=== PATIENT | male | born 1980 | race Caucasian/White ===

== ENCOUNTER 2016-08-17 19:32 | Emergency (ER) | payer MEDICAID ==
[2016-08-17 20:37] LABS: BASOPHILS 0.5 % (0-2); EOSINOPHILS 2.4 % (0-7); HEMATOCRIT 42.6 % (42.0-54.0); HEMOGLOBIN 14.6 g/dL (13.5-17.5); IMMATURE GRANULOCYTES 0.5 % (0-5); LYMPHOCYTES 31.1 % (15-50); MCH 35.8 pg (26.0-34.0); MCHC 34.3 g/dL (31.0-37.0); MCV 104.4 fL (80.0-100.0); MEAN PLATELET VOLUME 8.8 fL (7.4-10.4); MONOCYTES 10.9 % (2-11); NEUTROPHILS 54.6 % (40-80); RBC 4.08 10x6/uL (4.20-6.10); RDW 13.6 % (11.5-14.5)
[2016-08-17 20:41] LABS: PLATELET COUNT 273 10x3/uL (130-400)
[2016-08-17 20:45] LABS: UDS - AMPHET NEGATIVE QUAL (NEGATIVE); UDS - BARB NEGATIVE QUAL (NEGATIVE); UDS - BENZO NEGATIVE QUAL (NEGATIVE); UDS - COCAINE NEGATIVE QUAL (NEGATIVE); UDS - METH NEGATIVE QUAL (NEGATIVE); UDS - OPIATE NEGATIVE QUAL (NEGATIVE); UDS - PCP NEGATIVE QUAL (NEGATIVE); UDS - THC NEGATIVE QUAL (NEGATIVE)
[2016-08-17 20:54] LABS: APPEARANCE CLEAR (CLEAR); BILIRUBIN NEGATIVE (NEGATIVE); COLOR YELLOW (YELLOW); GLUCOSE NEGATIVE (NEGATIVE); KETONE NEGATIVE (NEGATIVE); LEUKOCYTE ESTERASE NEGATIVE (NEGATIVE); NITRITE NEGATIVE (NEGATIVE); PROTEIN NEGATIVE (NEGATIVE); SPECIFIC GRAVITY 1.015 (1.005-1.020); UROBILINOGEN NORMAL (NORMAL)
[2016-08-17 20:56] LABS: ALBUMIN 3.6 g/dL (3.4-5.0); ALKALINE PHOSPHATASE 114 U/L (46-116); ALT (SGPT) 85 U/L (10-68); BILIRUBIN - TOTAL 0.14 mg/dL (0.2-1.3); CALC OSMOLALITY 289 mosm/kg (275-300); CALCIUM 8.9 mg/dL (8.5-10.1); CARBON DIOXIDE 29.2 mmol/L (21.0-32.0); CHLORIDE - SERUM 107 mmol/L (98-107); GLUCOSE 99 mg/dL (74-106); POTASSIUM - SERUM 4.3 mmol/L (3.5-5.1); PROTEIN - SERUM 8.1 g/dL (6.4-8.2); SODIUM 146 mmol/L (136-145); UREA NITROGEN 9 mg/dL (7-18); eGFR NON AFRICAN AMERICAN > 90 mL/min (90-120)
== END 2016-08-18 11:22 | disposition short-term general hospital (02) ==
LOC: D.ER 19:32
PROVIDERS: Family Medicine
DX: F32.9 Major depressive disorder, single episode, unspecified (principal); R45.851 Suicidal ideations; F10.10 Alcohol abuse, uncomplicated; G40.909 Epilepsy, unspecified, not intractable, without status epilepticus; F14.10 Cocaine abuse, uncomplicated

== ENCOUNTER 2016-09-21 09:40 | Emergency (ER) | payer MEDICAID ==
[2016-09-21 10:53] LABS: BASOPHILS 0.4 % (0-2); EOSINOPHILS 2.1 % (0-7); HEMATOCRIT 40.1 % (42.0-54.0); HEMOGLOBIN 13.4 g/dL (13.5-17.5); IMMATURE GRANULOCYTES 1.7 % (0-5); MCH 34.9 pg (26.0-34.0); MCHC 33.4 g/dL (31.0-37.0); MCV 104.4 fL (80.0-100.0); MEAN PLATELET VOLUME 9.6 fL (7.4-10.4); MONOCYTES 10.3 % (2-11); NEUTROPHILS 72.5 % (40-80); RBC 3.84 10x6/uL (4.20-6.10); RDW 13.3 % (11.5-14.5); WBC 5.2 10x3/uL (4.8-10.8)
[2016-09-21 10:54] LABS: PLATELET COUNT 152 10x3/uL (130-400)
[2016-09-21 10:59] LABS: APPEARANCE CLEAR (CLEAR); BACTERIA FEW /hpf (NONE SEEN); BILIRUBIN NEGATIVE (NEGATIVE); COLOR YELLOW (YELLOW); EPITHELIAL CELLS OCC /hpf (0-5); GLUCOSE NEGATIVE (NEGATIVE); KETONE SMALL mg/dL (NEGATIVE); LEUKOCYTE ESTERASE TRACE (NEGATIVE); NITRITE NEGATIVE (NEGATIVE); PROTEIN 1+ mg/dL (NEGATIVE); RED CELLS - URINE 0-5 /hpf (0-5); UROBILINOGEN NORMAL (NORMAL); YEAST OCC /hpf (NONE SEEN)
[2016-09-21 11:00] LABS: MUCUS <1+ /lpf (NONE SEEN)
[2016-09-21 11:03] LABS: UDS - AMPHET NEGATIVE QUAL (NEGATIVE); UDS - BARB NEGATIVE QUAL (NEGATIVE); UDS - BENZO NEGATIVE QUAL (NEGATIVE); UDS - COCAINE NEGATIVE QUAL (NEGATIVE); UDS - METH NEGATIVE QUAL (NEGATIVE); UDS - OPIATE NEGATIVE QUAL (NEGATIVE); UDS - PCP NEGATIVE QUAL (NEGATIVE); UDS - THC NEGATIVE QUAL (NEGATIVE)
[2016-09-21 11:07] LABS: ALBUMIN 3.2 g/dL (3.4-5.0); ALKALINE PHOSPHATASE 104 U/L (46-116); ALT (SGPT) 114 U/L (10-68); CALC OSMOLALITY 280 mosm/kg (275-300); CALCIUM 8.4 mg/dL (8.5-10.1); CHLORIDE - SERUM 104 mmol/L (98-107); CREATININE - SERUM 0.9 mg/dL (0.6-1.3); GLUCOSE 111 mg/dL (74-106); POTASSIUM - SERUM 4.1 mmol/L (3.5-5.1); SODIUM 141 mmol/L (136-145); UREA NITROGEN 10 mg/dL (7-18); eGFR NON AFRICAN AMERICAN > 90 mL/min (90-120)
[2016-09-21 11:08] LABS: CARBAMAZEPINE (TEGRETOL) 5.7 ug/mL (4.0-12.0); MAGNESIUM - SERUM 1.5 mg/dL (1.8-2.4)
== END 2016-09-21 14:03 | disposition home or self-care (01) ==
LOC: D.ER 09:40
PROVIDERS: Family Medicine; Nurse Practitioner Family
DX: G40.909 Epilepsy, unspecified, not intractable, without status epilepticus (principal); N39.0 Urinary tract infection, site not specified

== ENCOUNTER 2016-10-25 22:29 | Emergency (ER) | payer MEDICAID ==
[2016-10-25 23:45] LABS: BASOPHILS 0.1 % (0-2); EOSINOPHILS 1.8 % (0-7); HEMATOCRIT 40.9 % (42.0-54.0); HEMOGLOBIN 14.2 g/dL (13.5-17.5); IMMATURE GRANULOCYTES 0.4 % (0-5); MCHC 34.7 g/dL (31.0-37.0); MCV 100.7 fL (80.0-100.0); MONOCYTES 13.4 % (2-11); NEUTROPHILS 57.3 % (40-80); PLATELET COUNT 176 10x3/uL (130-400); RBC 4.06 10x6/uL (4.20-6.10); RDW 12.8 % (11.5-14.5); WBC 7.6 10x3/uL (4.8-10.8)
[2016-10-26 00:05] LABS: ALBUMIN 3.5 g/dL (3.4-5.0); ALKALINE PHOSPHATASE 89 U/L (46-116); ALT (SGPT) 134 U/L (10-68); BILIRUBIN - TOTAL 0.36 mg/dL (0.2-1.3); CALC OSMOLALITY 283 mosm/kg (275-300); CALCIUM 8.7 mg/dL (8.5-10.1); CARBON DIOXIDE 24.2 mmol/L (21.0-32.0); CHLORIDE - SERUM 103 mmol/L (98-107); CREATININE - SERUM 0.8 mg/dL (0.6-1.3); GLUCOSE 102 mg/dL (74-106); MAGNESIUM - SERUM 1.9 mg/dL (1.8-2.4); POTASSIUM - SERUM 3.4 mmol/L (3.5-5.1); PROTEIN - SERUM 7.7 g/dL (6.4-8.2); SODIUM 144 mmol/L (136-145); UREA NITROGEN 4 mg/dL (7-18); eGFR NON AFRICAN AMERICAN > 90 mL/min (90-120)
== END 2016-10-26 01:19 | disposition home or self-care (01) ==
LOC: D.ER 22:29
PROVIDERS: Emergency Medicine
DX: G40.909 Epilepsy, unspecified, not intractable, without status epilepticus (principal); F10.10 Alcohol abuse, uncomplicated; F17.200 Nicotine dependence, unspecified, uncomplicated

== ENCOUNTER 2016-10-27 18:59 | Emergency (ER) | payer MEDICAID ==
[2016-10-27 20:19] LABS: BASOPHILS 0.2 % (0-2); EOSINOPHILS 0.3 % (0-7); HEMATOCRIT 37.6 % (42.0-54.0); HEMOGLOBIN 12.9 g/dL (13.5-17.5); IMMATURE GRANULOCYTES 0.3 % (0-5); LYMPHOCYTES 16.1 % (15-50); MCHC 34.3 g/dL (31.0-37.0); MCV 101.9 fL (80.0-100.0); MEAN PLATELET VOLUME 9.5 fL (7.4-10.4); MONOCYTES 14.5 % (2-11); NEUTROPHILS 68.6 % (40-80); PLATELET COUNT 173 10x3/uL (130-400); RBC 3.69 10x6/uL (4.20-6.10); WBC 6.3 10x3/uL (4.8-10.8)
[2016-10-27 20:34] LABS: APPEARANCE CLEAR (CLEAR); COLOR AMBER (YELLOW); SPECIFIC GRAVITY 1.015 (1.005-1.020)
[2016-10-27 20:35] LABS: BILIRUBIN NEGATIVE (NEGATIVE); GLUCOSE NEGATIVE (NEGATIVE); KETONE NEGATIVE (NEGATIVE); LEUKOCYTE ESTERASE NEGATIVE (NEGATIVE); NITRITE NEGATIVE (NEGATIVE); PROTEIN NEGATIVE (NEGATIVE); UROBILINOGEN NORMAL (NORMAL)
[2016-10-27 22:02] LABS: UDS - AMPHET NEGATIVE QUAL (NEGATIVE); UDS - BARB NEGATIVE QUAL (NEGATIVE); UDS - BENZO NEGATIVE QUAL (NEGATIVE); UDS - COCAINE NEGATIVE QUAL (NEGATIVE); UDS - METH NEGATIVE QUAL (NEGATIVE); UDS - OPIATE NEGATIVE QUAL (NEGATIVE); UDS - PCP NEGATIVE QUAL (NEGATIVE); UDS - THC NEGATIVE QUAL (NEGATIVE)
== END 2016-10-27 22:03 | disposition home or self-care (01) ==
LOC: D.ER 18:59
PROVIDERS: Emergency Medicine; Nurse Practitioner Family
DX: R11.2 Nausea with vomiting, unspecified (principal); R42 Dizziness and giddiness

== ENCOUNTER 2016-11-10 07:56 | Emergency (ER) | payer MEDICAID ==
[2016-11-10 09:47] LABS: BASOPHILS 0.4 % (0-2); EOSINOPHILS 0.6 % (0-7); HEMATOCRIT 43.5 % (42.0-54.0); LYMPHOCYTES 9.4 % (15-50); MCH 34.9 pg (26.0-34.0); MCHC 34.5 g/dL (31.0-37.0); MCV 101.2 fL (80.0-100.0); MEAN PLATELET VOLUME 9.2 fL (7.4-10.4); MONOCYTES 9.2 % (2-11); NEUTROPHILS 79.4 % (40-80); RDW 13.1 % (11.5-14.5); WBC 8.3 10x3/uL (4.8-10.8)
[2016-11-10 09:52] LABS: PLATELET COUNT 214 10x3/uL (130-400)
[2016-11-10 10:04] LABS: APPEARANCE CLEAR (CLEAR); BILIRUBIN NEGATIVE (NEGATIVE); COLOR YELLOW (YELLOW); GLUCOSE NEGATIVE (NEGATIVE); KETONE SMALL mg/dL (NEGATIVE); LEUKOCYTE ESTERASE NEGATIVE (NEGATIVE); NITRITE NEGATIVE (NEGATIVE); PROTEIN NEGATIVE (NEGATIVE); UROBILINOGEN NORMAL (NORMAL)
[2016-11-10 10:08] LABS: UDS - AMPHET POSITIVE QUAL (NEGATIVE); UDS - BARB NEGATIVE QUAL (NEGATIVE); UDS - BENZO NEGATIVE QUAL (NEGATIVE); UDS - COCAINE NEGATIVE QUAL (NEGATIVE); UDS - METH NEGATIVE QUAL (NEGATIVE); UDS - OPIATE NEGATIVE QUAL (NEGATIVE); UDS - PCP NEGATIVE QUAL (NEGATIVE); UDS - THC NEGATIVE QUAL (NEGATIVE)
[2016-11-10 10:12] LABS: BACTERIA FEW /hpf (NONE SEEN); EPITHELIAL CELLS 0-5 /hpf (0-5); HYALINE CAST 0-5 /lpf (NONE SEEN); MUCUS >1+ /lpf (NONE SEEN); RED CELLS - URINE 0-5 /hpf (0-5); WHITE CELLS - URINE 0-5 /hpf (0-5)
[2016-11-10 10:39] LABS: ALBUMIN 3.3 g/dL (3.4-5.0); ALKALINE PHOSPHATASE 85 U/L (46-116); ALT (SGPT) 81 U/L (10-68); BILIRUBIN - TOTAL 0.17 mg/dL (0.2-1.3); CALC OSMOLALITY 280 mosm/kg (275-300); CALCIUM 8.1 mg/dL (8.5-10.1); CARBAMAZEPINE (TEGRETOL) 1.5 ug/mL (4.0-12.0); CARBON DIOXIDE 26.3 mmol/L (21.0-32.0); CHLORIDE - SERUM 103 mmol/L (98-107); CREATININE - SERUM 0.8 mg/dL (0.6-1.3); GLUCOSE 88 mg/dL (74-106); MAGNESIUM - SERUM 1.8 mg/dL (1.8-2.4); PROTEIN - SERUM 7.2 g/dL (6.4-8.2); SODIUM 142 mmol/L (136-145); UREA NITROGEN 9 mg/dL (7-18); eGFR NON AFRICAN AMERICAN > 90 mL/min (90-120)
== END 2016-11-10 12:28 | disposition home or self-care (01) ==
LOC: D.ER 07:56
PROVIDERS: Emergency Medicine
DX: R56.9 Unspecified convulsions (principal); F19.10 Other psychoactive substance abuse, uncomplicated; F31.89 Other bipolar disorder; F17.200 Nicotine dependence, unspecified, uncomplicated

== ENCOUNTER 2016-12-11 09:42 | Emergency (ER) | payer MEDICAID ==
[2016-12-11 10:23] LABS: APPEARANCE CLEAR (CLEAR); BILIRUBIN NEGATIVE (NEGATIVE); COLOR YELLOW (YELLOW); GLUCOSE NEGATIVE (NEGATIVE); KETONE NEGATIVE (NEGATIVE); LEUKOCYTE ESTERASE NEGATIVE (NEGATIVE); NITRITE NEGATIVE (NEGATIVE); PROTEIN NEGATIVE (NEGATIVE); SPECIFIC GRAVITY 1.015 (1.005-1.020); UROBILINOGEN NORMAL (NORMAL)
[2016-12-11 10:25] LABS: BASOPHILS 0.3 % (0-2); EOSINOPHILS 3.8 % (0-7); HEMATOCRIT 41.8 % (42.0-54.0); HEMOGLOBIN 14.5 g/dL (13.5-17.5); IMMATURE GRANULOCYTES 1.3 % (0-5); LYMPHOCYTES 25.1 % (15-50); MCH 35.5 pg (26.0-34.0); MCHC 34.7 g/dL (31.0-37.0); MCV 102.5 fL (80.0-100.0); MONOCYTES 12.9 % (2-11); NEUTROPHILS 56.6 % (40-80); PLATELET COUNT 195 10x3/uL (130-400); RBC 4.08 10x6/uL (4.20-6.10); RDW 13.4 % (11.5-14.5); WBC 6.1 10x3/uL (4.8-10.8)
[2016-12-11 10:30] LABS: UDS - AMPHET POSITIVE QUAL (NEGATIVE); UDS - BARB NEGATIVE QUAL (NEGATIVE); UDS - BENZO NEGATIVE QUAL (NEGATIVE); UDS - COCAINE NEGATIVE QUAL (NEGATIVE); UDS - METH NEGATIVE QUAL (NEGATIVE); UDS - OPIATE NEGATIVE QUAL (NEGATIVE); UDS - PCP NEGATIVE QUAL (NEGATIVE); UDS - THC NEGATIVE QUAL (NEGATIVE)
[2016-12-11 10:43] LABS: ALBUMIN 3.4 g/dL (3.4-5.0); ALKALINE PHOSPHATASE 101 U/L (46-116); ALT (SGPT) 53 U/L (10-68); CALC OSMOLALITY 273 mosm/kg (275-300); CALCIUM 8.2 mg/dL (8.5-10.1); CARBON DIOXIDE 13.7 mmol/L (21.0-32.0); CHLORIDE - SERUM 100 mmol/L (98-107); GLUCOSE 109 mg/dL (74-106); MAGNESIUM - SERUM 1.9 mg/dL (1.8-2.4); POTASSIUM - SERUM 3.9 mmol/L (3.5-5.1); PROTEIN - SERUM 7.7 g/dL (6.4-8.2); SODIUM 138 mmol/L (136-145); UREA NITROGEN 4 mg/dL (7-18); eGFR NON AFRICAN AMERICAN > 90 mL/min (90-120)
== END 2016-12-11 15:36 | disposition home or self-care (01) ==
LOC: D.ER 09:42
PROVIDERS: Emergency Medicine; Nurse Practitioner Family
DX: G40.909 Epilepsy, unspecified, not intractable, without status epilepticus (principal); F10.10 Alcohol abuse, uncomplicated; Z91.14 Patient's other noncompliance with medication regimen; F17.200 Nicotine dependence, unspecified, uncomplicated

== ENCOUNTER 2016-12-21 07:41 | Emergency (ER) | payer MEDICAID | END 2016-12-21 08:18 | disposition home or self-care (01) | LOC: D.ER 07:41 | DX: R56.9 Unspecified convulsions (principal); Z91.14 Patient's other noncompliance with medication regimen; F10.10 Alcohol abuse, uncomplicated; F17.200 Nicotine dependence, unspecified, uncomplicated ==

== ENCOUNTER 2017-04-20 22:58 | Emergency (ER) | payer MEDICAID ==
[2017-04-20 23:51] LABS: HEMATOCRIT 38.2 % (42.0-54.0); HEMOGLOBIN 13.4 g/dL (13.5-17.5); LYMPHOCYTES 40.2 % (15-50); MCHC 35.1 g/dL (31.0-37.0); MCV 99.7 fL (80.0-100.0); MEAN PLATELET VOLUME 8.5 fL (7.4-10.4); NEUTROPHILS 47.5 % (40-80); RBC 3.83 10x6/uL (4.20-6.10); RDW 13.2 % (11.5-14.5); WBC 7.7 10x3/uL (4.8-10.8)
[2017-04-20 23:52] LABS: PLATELET COUNT 282 10x3/uL (130-400)
[2017-04-21 00:07] LABS: ALBUMIN 3.3 g/dL (3.4-5.0); ALKALINE PHOSPHATASE 95 U/L (46-116); ALT (SGPT) 40 U/L (10-68); CALC OSMOLALITY 279 mosm/kg (275-300); CALCIUM 8.7 mg/dL (8.5-10.1); CARBON DIOXIDE 27.6 mmol/L (21.0-32.0); CHLORIDE - SERUM 104 mmol/L (98-107); CREATININE - SERUM 0.9 mg/dL (0.6-1.3); GLUCOSE 101 mg/dL (74-106); MAGNESIUM - SERUM 1.8 mg/dL (1.8-2.4); POTASSIUM - SERUM 3.9 mmol/L (3.5-5.1); PROTEIN - SERUM 7.2 g/dL (6.4-8.2); SODIUM 141 mmol/L (136-145); UREA NITROGEN 9 mg/dL (7-18); eGFR NON AFRICAN AMERICAN > 90 mL/min (90-120)
[2017-04-21 02:33] LABS: COLOR YELLOW (YELLOW); UDS - AMPHET NEGATIVE QUAL (NEGATIVE); UDS - BARB NEGATIVE QUAL (NEGATIVE); UDS - BENZO POSITIVE QUAL (NEGATIVE); UDS - COCAINE NEGATIVE QUAL (NEGATIVE); UDS - OPIATE NEGATIVE QUAL (NEGATIVE); UDS - PCP NEGATIVE QUAL (NEGATIVE); UDS - THC NEGATIVE QUAL (NEGATIVE)
[2017-04-21 02:34] LABS: APPEARANCE CLEAR (CLEAR); BILIRUBIN NEGATIVE (NEGATIVE); GLUCOSE NEGATIVE (NEGATIVE); KETONE NEGATIVE (NEGATIVE); NITRITE NEGATIVE (NEGATIVE); PROTEIN NEGATIVE (NEGATIVE); SPECIFIC GRAVITY 1.015 (1.005-1.020); UROBILINOGEN NORMAL (NORMAL)
[2017-04-21 02:35] LABS: BACTERIA NONE SEEN /hpf (NONE SEEN); EPITHELIAL CELLS 0-5 /hpf (0-5); RED CELLS - URINE NONE SEEN /hpf (0-5); WHITE CELLS - URINE 0-5 /hpf (0-5)
== END 2017-04-21 07:03 | disposition home or self-care (01) ==
LOC: D.ER 22:58
PROVIDERS: Family Medicine
DX: F10.10 Alcohol abuse, uncomplicated (principal); G40.909 Epilepsy, unspecified, not intractable, without status epilepticus; F17.200 Nicotine dependence, unspecified, uncomplicated

== ENCOUNTER 2017-04-26 20:27 | Emergency (ER) | payer MEDICAID ==
[2017-04-26 21:39] LABS: BASOPHILS 0.2 % (0-2); EOSINOPHILS 2.9 % (0-7); HEMATOCRIT 40.7 % (42.0-54.0); HEMOGLOBIN 13.8 g/dL (13.5-17.5); IMMATURE GRANULOCYTES 0.2 % (0-5); LYMPHOCYTES 23.7 % (15-50); MCH 34.6 pg (26.0-34.0); MCHC 33.9 g/dL (31.0-37.0); MEAN PLATELET VOLUME 9.4 fL (7.4-10.4); PLATELET COUNT 274 10x3/uL (130-400); RBC 3.99 10x6/uL (4.20-6.10); RDW 12.7 % (11.5-14.5); WBC 8.6 10x3/uL (4.8-10.8)
[2017-04-26 21:45] LABS: INR 0.92 (0.85-1.17)
[2017-04-26 21:50] LABS: APPEARANCE CLEAR (CLEAR); BILIRUBIN NEGATIVE (NEGATIVE); COLOR DK YELLOW (YELLOW); GLUCOSE NEGATIVE (NEGATIVE); KETONE NEGATIVE (NEGATIVE); NITRITE NEGATIVE (NEGATIVE); PROTEIN TRACE mg/dL (NEGATIVE); UROBILINOGEN NORMAL (NORMAL)
[2017-04-26 21:55] LABS: WHITE CELLS - URINE 0-5 /hpf (0-5)
[2017-04-26 21:56] LABS: ALBUMIN 3.6 g/dL (3.4-5.0); ALKALINE PHOSPHATASE 89 U/L (46-116); ALT (SGPT) 42 U/L (10-68); BILIRUBIN - TOTAL 0.23 mg/dL (0.2-1.3); CALC OSMOLALITY 273 mosm/kg (275-300); CALCIUM 8.8 mg/dL (8.5-10.1); CARBON DIOXIDE 29.5 mmol/L (21.0-32.0); CHLORIDE - SERUM 99 mmol/L (98-107); CREATININE - SERUM 0.7 mg/dL (0.6-1.3); GLUCOSE 100 mg/dL (74-106); POTASSIUM - SERUM 4.1 mmol/L (3.5-5.1); PROTEIN - SERUM 7.6 g/dL (6.4-8.2); SODIUM 138 mmol/L (136-145); UREA NITROGEN 8 mg/dL (7-18); eGFR NON AFRICAN AMERICAN > 90 mL/min (90-120)
[2017-04-26 21:56] LABS: UDS - AMPHET NEGATIVE QUAL (NEGATIVE); UDS - BARB NEGATIVE QUAL (NEGATIVE); UDS - BENZO POSITIVE QUAL (NEGATIVE); UDS - COCAINE NEGATIVE QUAL (NEGATIVE); UDS - OPIATE NEGATIVE QUAL (NEGATIVE); UDS - PCP NEGATIVE QUAL (NEGATIVE); UDS - THC NEGATIVE QUAL (NEGATIVE)
[2017-04-26 22:00] LABS: BACTERIA FEW /hpf (NONE SEEN); EPITHELIAL CELLS 0-5 /hpf (0-5)
== END 2017-04-27 01:13 | disposition home or self-care (01) ==
LOC: D.ER 20:27
PROVIDERS: Nurse Practitioner Family
DX: F10.10 Alcohol abuse, uncomplicated (principal); F10.239 Alcohol dependence with withdrawal, unspecified

== ENCOUNTER 2017-05-03 08:37 | Emergency (ER) | payer MEDICAID ==
[2017-05-03 09:02] LABS: UDS - AMPHET NEGATIVE QUAL (NEGATIVE); UDS - BARB NEGATIVE QUAL (NEGATIVE); UDS - BENZO NEGATIVE QUAL (NEGATIVE); UDS - COCAINE NEGATIVE QUAL (NEGATIVE); UDS - OPIATE NEGATIVE QUAL (NEGATIVE); UDS - PCP NEGATIVE QUAL (NEGATIVE); UDS - THC NEGATIVE QUAL (NEGATIVE)
[2017-05-03 09:05] LABS: APPEARANCE CLEAR (CLEAR); BILIRUBIN NEGATIVE (NEGATIVE); COLOR YELLOW (YELLOW); GLUCOSE NEGATIVE (NEGATIVE); KETONE NEGATIVE (NEGATIVE); NITRITE NEGATIVE (NEGATIVE); PROTEIN NEGATIVE (NEGATIVE); UROBILINOGEN NORMAL (NORMAL)
[2017-05-03 09:05] LABS: BASOPHILS 0.3 % (0-2); EOSINOPHILS 3.1 % (0-7); HEMOGLOBIN 14.4 g/dL (13.5-17.5); IMMATURE GRANULOCYTES 0.9 % (0-5); LYMPHOCYTES 33.4 % (15-50); MCH 34.7 pg (26.0-34.0); MCHC 34.3 g/dL (31.0-37.0); MCV 101.2 fL (80.0-100.0); MEAN PLATELET VOLUME 9.5 fL (7.4-10.4); NEUTROPHILS 50.3 % (40-80); PLATELET COUNT 293 10x3/uL (130-400); RBC 4.15 10x6/uL (4.20-6.10); RDW 12.8 % (11.5-14.5); WBC 6.7 10x3/uL (4.8-10.8)
[2017-05-03 09:16] LABS: ALBUMIN 3.5 g/dL (3.4-5.0); ALKALINE PHOSPHATASE 105 U/L (46-116); ALT (SGPT) 50 U/L (10-68); BILIRUBIN - TOTAL 0.14 mg/dL (0.2-1.3); CALC OSMOLALITY 275 mosm/kg (275-300); CARBON DIOXIDE 18.2 mmol/L (21.0-32.0); CHLORIDE - SERUM 102 mmol/L (98-107); CREATININE - SERUM 0.9 mg/dL (0.6-1.3); GLUCOSE 100 mg/dL (74-106); POTASSIUM - SERUM 4.2 mmol/L (3.5-5.1); PROTEIN - SERUM 7.7 g/dL (6.4-8.2); SODIUM 138 mmol/L (136-145); UREA NITROGEN 13 mg/dL (7-18); eGFR NON AFRICAN AMERICAN > 90 mL/min (90-120)
== END 2017-05-03 11:07 | disposition home or self-care (01) ==
LOC: D.ER 08:37
PROVIDERS: Family Medicine
DX: R56.9 Unspecified convulsions (principal); F19.10 Other psychoactive substance abuse, uncomplicated

== ENCOUNTER 2017-08-02 13:01 | Emergency (ER) | payer MEDICAID ==
[2017-08-02 13:27] LABS: BASOPHILS 0.7 % (0-2); HEMATOCRIT 40.4 % (42.0-54.0); HEMOGLOBIN 13.9 g/dL (13.5-17.5); IMMATURE GRANULOCYTES 0.3 % (0-5); MCH 34.7 pg (26.0-34.0); MCHC 34.4 g/dL (31.0-37.0); MCV 100.7 fL (80.0-100.0); MEAN PLATELET VOLUME 8.8 fL (7.4-10.4); MONOCYTES 12.3 % (2-11); NEUTROPHILS 56.7 % (40-80); PLATELET COUNT 261 10x3/uL (130-400); RBC 4.01 10x6/uL (4.20-6.10); RDW 13.5 % (11.5-14.5)
[2017-08-02 13:48] LABS: INR 0.89 (0.85-1.17); PROTIME 11.7 SECONDS (11.6-15.0)
[2017-08-02 13:54] LABS: ALBUMIN 3.6 g/dL (3.4-5.0); ALKALINE PHOSPHATASE 89 U/L (46-116); ALT (SGPT) 60 U/L (10-68); CALC OSMOLALITY 276 mosm/kg (275-300); CALCIUM 8.9 mg/dL (8.5-10.1); CARBON DIOXIDE 26.8 mmol/L (21.0-32.0); CHLORIDE - SERUM 103 mmol/L (98-107); CREATININE - SERUM 0.9 mg/dL (0.6-1.3); GLUCOSE 91 mg/dL (74-106); MAGNESIUM - SERUM 1.8 mg/dL (1.8-2.4); POTASSIUM - SERUM 4.4 mmol/L (3.5-5.1); PROTEIN - SERUM 7.8 g/dL (6.4-8.2); SODIUM 139 mmol/L (136-145); UREA NITROGEN 10 mg/dL (7-18); eGFR NON AFRICAN AMERICAN > 90 mL/min (90-120)
[2017-08-02 14:51] LABS: UDS - AMPHET NEGATIVE QUAL (NEGATIVE); UDS - BARB NEGATIVE QUAL (NEGATIVE); UDS - BENZO NEGATIVE QUAL (NEGATIVE); UDS - COCAINE NEGATIVE QUAL (NEGATIVE); UDS - OPIATE POSITIVE QUAL (NEGATIVE); UDS - PCP NEGATIVE QUAL (NEGATIVE); UDS - THC NEGATIVE QUAL (NEGATIVE)
[2017-08-02 15:07] LABS: APPEARANCE CLEAR (CLEAR); BILIRUBIN NEGATIVE (NEGATIVE); COLOR YELLOW (YELLOW); GLUCOSE NEGATIVE (NEGATIVE); KETONE NEGATIVE (NEGATIVE); NITRITE NEGATIVE (NEGATIVE); PROTEIN NEGATIVE (NEGATIVE); UROBILINOGEN NORMAL (NORMAL)
== END 2017-08-02 16:42 | disposition home or self-care (01) ==
LOC: D.ER 13:01
PROVIDERS: Emergency Medicine; Nurse Practitioner Family
DX: F10.10 Alcohol abuse, uncomplicated (principal); F17.200 Nicotine dependence, unspecified, uncomplicated

== ENCOUNTER 2017-10-10 23:11 | Emergency (ER) | payer MEDICAID ==
[~2017-10-10] VITALS: Ht 172.7 cm; Wt 77.1 kg
[2017-10-10 23:12] VITALS: Ht 172.7 cm; Wt 77.1 kg
[2017-10-10] MEDS ORDERED: EPITOL200 MG PO (23:13)
[2017-10-10] MEDS ORDERED: KEPPRA500 MG PO (23:13)
[2017-10-11 00:10] LABS: BASOPHILS 0.2 % (0-2); EOSINOPHILS 0.6 % (0-7); HEMATOCRIT 40.3 % (42.0-54.0); HEMOGLOBIN 13.8 g/dL (13.5-17.5); LYMPHOCYTES 10.3 % (15-50); MCH 34.4 pg (26.0-34.0); MCHC 34.2 g/dL (31.0-37.0); MCV 100.5 fL (80.0-100.0); MONOCYTES 7.9 % (2-11); RBC 4.01 10x6/uL (4.20-6.10); RDW 12.6 % (11.5-14.5); WBC 12.5 10x3/uL (4.8-10.8)
[2017-10-11 00:14] LABS: PLATELET COUNT 362 10x3/uL (130-400)
[2017-10-11 00:17] LABS: APPEARANCE CLEAR (CLEAR); BILIRUBIN NEGATIVE (NEGATIVE); COLOR YELLOW (YELLOW); GLUCOSE NEGATIVE (NEGATIVE); KETONE NEGATIVE (NEGATIVE); NITRITE NEGATIVE (NEGATIVE); PROTEIN NEGATIVE (NEGATIVE); SPECIFIC GRAVITY 1.015 (1.005-1.020); UROBILINOGEN NORMAL (NORMAL)
[2017-10-11 00:26] LABS: ALBUMIN 3.2 g/dL (3.4-5.0); ALKALINE PHOSPHATASE 74 U/L (46-116); ALT (SGPT) 164 U/L (10-68); BILIRUBIN - TOTAL 0.42 mg/dL (0.2-1.3); CALC OSMOLALITY 273 mosm/kg (275-300); CALCIUM 9.4 mg/dL (8.5-10.1); CARBON DIOXIDE 22.6 mmol/L (21.0-32.0); CHLORIDE - SERUM 102 mmol/L (98-107); CREATININE - SERUM 0.8 mg/dL (0.6-1.3); GLUCOSE 92 mg/dL (74-106); POTASSIUM - SERUM 3.7 mmol/L (3.5-5.1); PROTEIN - SERUM 7.6 g/dL (6.4-8.2); SODIUM 138 mmol/L (136-145); UREA NITROGEN 7 mg/dL (7-18); eGFR NON AFRICAN AMERICAN > 90 mL/min (90-120)
[2017-10-11 00:28] LABS: UDS - AMPHET NEGATIVE QUAL (NEGATIVE); UDS - BARB NEGATIVE QUAL (NEGATIVE); UDS - BENZO NEGATIVE QUAL (NEGATIVE); UDS - COCAINE NEGATIVE QUAL (NEGATIVE); UDS - OPIATE NEGATIVE QUAL (NEGATIVE); UDS - PCP NEGATIVE QUAL (NEGATIVE); UDS - THC NEGATIVE QUAL (NEGATIVE)
[2017-10-11] MEDS ORDERED: TEGRETOL200 MG PO (00:52)
[2017-10-11] MEDS ORDERED: KEPPRA500 MG PO (00:52)
[2017-10-11 01:45] VITALS: BP 140/86
== END 2017-10-11 01:45 | disposition home or self-care (01) ==
LOC: D.ER 23:11
PROVIDERS: Family Medicine
DX: G40.909 Epilepsy, unspecified, not intractable, without status epilepticus (principal); F10.10 Alcohol abuse, uncomplicated; Z91.14 Patient's other noncompliance with medication regimen; F17.200 Nicotine dependence, unspecified, uncomplicated

== ENCOUNTER 2017-10-11 02:00 | Emergency (ER) | payer MEDICAID ==
[~2017-10-11] VITALS: Ht 172.7 cm; Wt 90.9 kg
[~2017-10-11 02:00] MED LIST: EPITOL200 MG PO; KEPPRA500 MG PO; TEGRETOL200 MG PO
[2017-10-11 02:06] VITALS: Ht 172.7 cm; Wt 90.9 kg
[2017-10-11 03:37] LABS: BASOPHILS 0.2 % (0-2); EOSINOPHILS 0.2 % (0-7); HEMATOCRIT 41.5 % (42.0-54.0); IMMATURE GRANULOCYTES 1.2 % (0-5); LYMPHOCYTES 8.9 % (15-50); MCH 34.5 pg (26.0-34.0); MCHC 33.7 g/dL (31.0-37.0); MCV 102.2 fL (80.0-100.0); MEAN PLATELET VOLUME 8.9 fL (7.4-10.4); MONOCYTES 7.5 % (2-11); PLATELET COUNT 326 10x3/uL (130-400); RBC 4.06 10x6/uL (4.20-6.10); RDW 12.8 % (11.5-14.5)
[2017-10-11 03:38] LABS: WBC 16.1 10x3/uL (4.8-10.8)
[2017-10-11 03:50] LABS: CALC OSMOLALITY 273 mosm/kg (275-300); CALCIUM 8.8 mg/dL (8.5-10.1); CARBON DIOXIDE 18.5 mmol/L (21.0-32.0); CHLORIDE - SERUM 101 mmol/L (98-107); GLUCOSE 127 mg/dL (74-106); SODIUM 137 mmol/L (136-145); UREA NITROGEN 8 mg/dL (7-18); eGFR NON AFRICAN AMERICAN 90 mL/min (90-120)
[2017-10-11 05:17] VITALS: BP 108/62
== END 2017-10-11 05:32 | disposition other institution (70) ==
LOC: D.ER 02:00
PROVIDERS: Family Medicine
DX: G40.909 Epilepsy, unspecified, not intractable, without status epilepticus (principal); S01.512A Laceration without foreign body of oral cavity, initial encounter; X58.XXXA Exposure to other specified factors, initial encounter; Y93.89 Activity, other specified; Y92.481 Parking lot as the place of occurrence of the external cause; F17.200 Nicotine dependence, unspecified, uncomplicated

== ENCOUNTER 2017-10-27 22:22 | Emergency (ER) | payer MEDICAID ==
[~2017-10-27] VITALS: Ht 172.7 cm; Wt 77.3 kg
[2017-10-27 22:24] VITALS: Ht 172.7 cm; Wt 77.3 kg
[2017-10-27 22:50] LABS: APPEARANCE CLEAR (CLEAR); BILIRUBIN NEGATIVE (NEGATIVE); COLOR YELLOW (YELLOW); GLUCOSE NEGATIVE (NEGATIVE); KETONE NEGATIVE (NEGATIVE); NITRITE NEGATIVE (NEGATIVE); PROTEIN NEGATIVE (NEGATIVE); SPECIFIC GRAVITY 1.015 (1.005-1.020); UROBILINOGEN NORMAL (NORMAL)
[2017-10-27 22:51] LABS: BACTERIA FEW /hpf (NONE SEEN); RED CELLS - URINE OCC /hpf (0-5); WHITE CELLS - URINE 0-5 /hpf (0-5)
[2017-10-27 23:06] LABS: BASOPHILS 0.3 % (0-2); EOSINOPHILS 2.7 % (0-7); HEMOGLOBIN 13.1 g/dL (13.5-17.5); IMMATURE GRANULOCYTES 1.1 % (0-5); LYMPHOCYTES 38.8 % (15-50); MCH 35.2 pg (26.0-34.0); MCHC 35.4 g/dL (31.0-37.0); MCV 99.5 fL (80.0-100.0); MEAN PLATELET VOLUME 8.8 fL (7.4-10.4); MONOCYTES 11.5 % (2-11); NEUTROPHILS 45.6 % (40-80); RBC 3.72 10x6/uL (4.20-6.10); RDW 13.4 % (11.5-14.5); WBC 6.2 10x3/uL (4.8-10.8)
[2017-10-27 23:07] LABS: PLATELET COUNT 164 10x3/uL (130-400)
[2017-10-27 23:20] LABS: ALBUMIN 3.2 g/dL (3.4-5.0); ALKALINE PHOSPHATASE 91 U/L (46-116); ALT (SGPT) 71 U/L (10-68); BILIRUBIN - TOTAL 0.12 mg/dL (0.2-1.3); CALC OSMOLALITY 270 mosm/kg (275-300); CALCIUM 8.2 mg/dL (8.5-10.1); CARBON DIOXIDE 23.1 mmol/L (21.0-32.0); CHLORIDE - SERUM 102 mmol/L (98-107); CREATININE - SERUM 0.9 mg/dL (0.6-1.3); GLUCOSE 103 mg/dL (74-106); POTASSIUM - SERUM 3.5 mmol/L (3.5-5.1); PROTEIN - SERUM 7.3 g/dL (6.4-8.2); SODIUM 136 mmol/L (136-145); UREA NITROGEN 9 mg/dL (7-18); eGFR NON AFRICAN AMERICAN > 90 mL/min (90-120)
[2017-10-28 00:33] LABS: UDS - AMPHET NEGATIVE QUAL (NEGATIVE); UDS - BARB NEGATIVE QUAL (NEGATIVE); UDS - BENZO NEGATIVE QUAL (NEGATIVE); UDS - COCAINE NEGATIVE QUAL (NEGATIVE); UDS - OPIATE NEGATIVE QUAL (NEGATIVE); UDS - PCP NEGATIVE QUAL (NEGATIVE); UDS - THC NEGATIVE QUAL (NEGATIVE)
[2017-10-28 06:07] VITALS: BP 91/57
== END 2017-10-28 07:34 | disposition home or self-care (01) ==
LOC: D.ER 22:22
PROVIDERS: Family Medicine
DX: F10.129 Alcohol abuse with intoxication, unspecified (principal); K80.20 Calculus of gallbladder without cholecystitis without obstruction; F17.200 Nicotine dependence, unspecified, uncomplicated

== ENCOUNTER 2017-12-29 21:22 | Emergency (ER) | payer SELFPAY ==
[~2017-12-29] VITALS: Ht 172.7 cm; Wt 75.0 kg
[2017-12-29 21:28] VITALS: Ht 172.7 cm; Wt 75.0 kg
[2017-12-29 22:34] LABS: BASOPHILS 0.2 % (0-2); EOSINOPHILS 0.7 % (0-7); HEMATOCRIT 37.9 % (42.0-54.0); HEMOGLOBIN 13.2 g/dL (13.5-17.5); IMMATURE GRANULOCYTES 0.3 % (0-5); LYMPHOCYTES 12.7 % (15-50); MCH 35.3 pg (26.0-34.0); MCHC 34.8 g/dL (31.0-37.0); MCV 101.3 fL (80.0-100.0); NEUTROPHILS 71.1 % (40-80); PLATELET COUNT 183 10x3/uL (130-400); RBC 3.74 10x6/uL (4.20-6.10); RDW 14.3 % (11.5-14.5); WBC 5.8 10x3/uL (4.8-10.8)
[2017-12-29 22:58] LABS: UDS - AMPHET POSITIVE QUAL (NEGATIVE); UDS - BARB NEGATIVE QUAL (NEGATIVE); UDS - BENZO NEGATIVE QUAL (NEGATIVE); UDS - COCAINE NEGATIVE QUAL (NEGATIVE); UDS - OPIATE NEGATIVE QUAL (NEGATIVE); UDS - PCP NEGATIVE QUAL (NEGATIVE); UDS - THC NEGATIVE QUAL (NEGATIVE)
[2017-12-29 23:05] LABS: ALBUMIN 3.5 g/dL (3.4-5.0); ALKALINE PHOSPHATASE 77 U/L (46-116); ALT (SGPT) 68 U/L (10-68); BILIRUBIN - TOTAL 0.86 mg/dL (0.2-1.3); CALC OSMOLALITY 273 mosm/kg (275-300); CARBON DIOXIDE 27.8 mmol/L (21.0-32.0); CHLORIDE - SERUM 101 mmol/L (98-107); CREATININE - SERUM 0.8 mg/dL (0.6-1.3); GLUCOSE 92 mg/dL (74-106); POTASSIUM - SERUM 3.6 mmol/L (3.5-5.1); PROTEIN - SERUM 7.8 g/dL (6.4-8.2); SODIUM 138 mmol/L (136-145); UREA NITROGEN 7 mg/dL (7-18); eGFR NON AFRICAN AMERICAN > 90 mL/min (90-120)
[2017-12-30] MEDS ORDERED: TEGRETOL200 MG PO (01:21)
[2017-12-30] MEDS ORDERED: KEPPRA500 MG PO (01:21)
[2017-12-30 01:50] VITALS: BP 127/79
== END 2017-12-30 01:51 | disposition home or self-care (01) ==
LOC: D.ER 21:22
PROVIDERS: Family Medicine
DX: Z91.14 Patient's other noncompliance with medication regimen (principal); G40.909 Epilepsy, unspecified, not intractable, without status epilepticus; F17.200 Nicotine dependence, unspecified, uncomplicated

== ENCOUNTER 2018-01-06 16:45 | Emergency (ER) | payer SELFPAY ==
[~2018-01-06] VITALS: Ht 172.7 cm; Wt 76.4 kg
[2018-01-06 16:47] VITALS: Ht 172.7 cm; Wt 76.4 kg
[2018-01-06 17:34] LABS: BASOPHILS 0.2 % (0-2); EOSINOPHILS 1.1 % (0-7); HEMATOCRIT 38.9 % (42.0-54.0); HEMOGLOBIN 13.7 g/dL (13.5-17.5); IMMATURE GRANULOCYTES 1.5 % (0-5); LYMPHOCYTES 19.5 % (15-50); MCH 35.6 pg (26.0-34.0); MCHC 35.2 g/dL (31.0-37.0); MEAN PLATELET VOLUME 9.8 fL (7.4-10.4); MONOCYTES 14.7 % (2-11); RBC 3.85 10x6/uL (4.20-6.10); RDW 13.7 % (11.5-14.5); WBC 8.6 10x3/uL (4.8-10.8)
[2018-01-06 17:57] LABS: PLATELET COUNT 342 10x3/uL (130-400)
[2018-01-06 18:13] LABS: ALBUMIN 3.2 g/dL (3.4-5.0); ALKALINE PHOSPHATASE 75 U/L (46-116); ALT (SGPT) 43 U/L (10-68); BILIRUBIN - TOTAL 0.14 mg/dL (0.2-1.3); CALC OSMOLALITY 275 mosm/kg (275-300); CALCIUM 9.2 mg/dL (8.5-10.1); CARBON DIOXIDE 23.9 mmol/L (21.0-32.0); CHLORIDE - SERUM 103 mmol/L (98-107); GLUCOSE 111 mg/dL (74-106); POTASSIUM - SERUM 3.9 mmol/L (3.5-5.1); PROTEIN - SERUM 7.5 g/dL (6.4-8.2); SODIUM 138 mmol/L (136-145); UREA NITROGEN 9 mg/dL (7-18); eGFR NON AFRICAN AMERICAN 90 mL/min (90-120)
[2018-01-06 20:18] LABS: APPEARANCE CLEAR (CLEAR); BILIRUBIN NEGATIVE (NEGATIVE); COLOR YELLOW (YELLOW); GLUCOSE NEGATIVE (NEGATIVE); KETONE NEGATIVE (NEGATIVE); NITRITE NEGATIVE (NEGATIVE); PROTEIN NEGATIVE (NEGATIVE); SPECIFIC GRAVITY 1.025 (1.005-1.020); UROBILINOGEN NORMAL (NORMAL)
[2018-01-06] MEDS ORDERED: KEPPRA500 MG PO (20:20)
[2018-01-06] MEDS ORDERED: TEGRETOL200 MG PO (20:20)
[2018-01-06 20:39] LABS: UDS - AMPHET NEGATIVE QUAL (NEGATIVE); UDS - BARB NEGATIVE QUAL (NEGATIVE); UDS - BENZO NEGATIVE QUAL (NEGATIVE); UDS - COCAINE NEGATIVE QUAL (NEGATIVE); UDS - OPIATE NEGATIVE QUAL (NEGATIVE); UDS - PCP NEGATIVE QUAL (NEGATIVE); UDS - THC NEGATIVE QUAL (NEGATIVE)
[2018-01-06 22:15] VITALS: BP 113/62
== END 2018-01-06 22:18 | disposition home or self-care (01) ==
LOC: D.ER 16:45
PROVIDERS: Emergency Medicine
DX: G40.909 Epilepsy, unspecified, not intractable, without status epilepticus (principal); Z91.19 Patient's noncompliance with other medical treatment and regimen; R11.0 Nausea; F17.200 Nicotine dependence, unspecified, uncomplicated

== ENCOUNTER 2018-10-04 10:24 | Emergency (ER) | payer SELFPAY ==
[~2018-10-04] VITALS: Ht 172.7 cm; Wt 72.7 kg
[2018-10-04 10:28] VITALS: Ht 172.7 cm; Wt 72.7 kg
[2018-10-04 11:10] LABS: BASOPHILS 0.5 % (0-2); EOSINOPHILS 1.7 % (0-7); HEMATOCRIT 37.8 % (42.0-54.0); HEMOGLOBIN 13.4 g/dL (13.5-17.5); IMMATURE GRANULOCYTES 0.3 % (0-5); LYMPHOCYTES 15.4 % (15-50); MCH 34.8 pg (26.0-34.0); MCHC 35.4 g/dL (31.0-37.0); MCV 98.2 fL (80.0-100.0); MEAN PLATELET VOLUME 9.5 fL (7.4-10.4); MONOCYTES 11.7 % (2-11); NEUTROPHILS 70.4 % (40-80); RBC 3.85 10x6/uL (4.20-6.10); RDW 13.8 % (11.5-14.5); WBC 5.9 10x3/uL (4.8-10.8)
[2018-10-04 11:11] LABS: PLATELET COUNT 188 10x3/uL (130-400)
[2018-10-04 11:24] LABS: ALBUMIN 3.3 g/dL (3.4-5.0); ALKALINE PHOSPHATASE 80 U/L (46-116); ALT (SGPT) 104 U/L (10-68); BILIRUBIN - TOTAL 0.44 mg/dL (0.2-1.3); CALC OSMOLALITY 275 mosm/kg (275-300); CALCIUM 8.6 mg/dL (8.5-10.1); CARBON DIOXIDE 23.4 mmol/L (21.0-32.0); CHLORIDE - SERUM 105 mmol/L (98-107); CREATININE - SERUM 0.8 mg/dL (0.6-1.3); GLUCOSE 101 mg/dL (74-106); POTASSIUM - SERUM 3.7 mmol/L (3.5-5.1); PROTEIN - SERUM 7.1 g/dL (6.4-8.2); SODIUM 139 mmol/L (136-145); UREA NITROGEN 7 mg/dL (7-18); eGFR NON AFRICAN AMERICAN > 90 mL/min (90-120)
[2018-10-04 11:30] VITALS: BP 112/60
[2018-10-04] MEDS ORDERED: NAPROSYN500 MG PO (11:55)
== END 2018-10-04 12:23 | disposition home or self-care (01) ==
LOC: D.ER 10:24
PROVIDERS: Family Medicine
DX: S12.9XXA Fracture of neck, unspecified, initial encounter (principal); V47.1XXA Car passenger injured in collision with fixed or stationary object in nontraffic accident, initial encounter

== ENCOUNTER 2018-11-04 12:21 | Emergency (ER) | payer MEDICAID ==
[~2018-11-04] VITALS: Ht 172.7 cm; Wt 72.7 kg
[~2018-11-04 12:21] MED LIST changes: +NAPROSYN500 MG PO
[2018-11-04 12:24] VITALS: Ht 172.7 cm; Wt 72.7 kg
[2018-11-04 13:12] LABS: BASOPHILS 0.2 % (0-2); EOSINOPHILS 0.6 % (0-7); HEMATOCRIT 39.8 % (42.0-54.0); HEMOGLOBIN 14.1 g/dL (13.5-17.5); IMMATURE GRANULOCYTES 0.2 % (0-5); LYMPHOCYTES 11.8 % (15-50); MCH 34.4 pg (26.0-34.0); MCHC 35.4 g/dL (31.0-37.0); MCV 97.1 fL (80.0-100.0); MEAN PLATELET VOLUME 9.3 fL (7.4-10.4); MONOCYTES 10.4 % (2-11); NEUTROPHILS 76.8 % (40-80); PLATELET COUNT 205 10x3/uL (130-400); RDW 13.8 % (11.5-14.5); WBC 6.3 10x3/uL (4.8-10.8)
[2018-11-04 13:14] LABS: ALBUMIN 3.2 g/dL (3.4-5.0); ALKALINE PHOSPHATASE 77 U/L (46-116); ALT (SGPT) 80 U/L (10-68); BILIRUBIN - TOTAL 0.44 mg/dL (0.2-1.3); CALC OSMOLALITY 274 mosm/kg (275-300); CALCIUM 8.1 mg/dL (8.5-10.1); CARBON DIOXIDE 20.3 mmol/L (21.0-32.0); CHLORIDE - SERUM 102 mmol/L (98-107); CREATININE - SERUM 0.9 mg/dL (0.6-1.3); GLUCOSE 89 mg/dL (74-106); MAGNESIUM - SERUM 1.5 mg/dL (1.8-2.4); POTASSIUM - SERUM 3.9 mmol/L (3.5-5.1); SODIUM 139 mmol/L (136-145); UREA NITROGEN 6 mg/dL (7-18); eGFR NON AFRICAN AMERICAN > 90 mL/min (90-120)
[2018-11-04 13:23] LABS: APPEARANCE CLOUDY (CLEAR); BACTERIA FEW /hpf (NONE SEEN); BILIRUBIN NEGATIVE (NEGATIVE); COLOR YELLOW (YELLOW); EPITHELIAL CELLS RARE /hpf (0-5); GLUCOSE NEGATIVE (NEGATIVE); KETONE MODERATE mg/dL (NEGATIVE); MUCUS <1+ /lpf (NONE SEEN); NITRITE NEGATIVE (NEGATIVE); PROTEIN NEGATIVE (NEGATIVE); RED CELLS - URINE 0-5 /hpf (0-5); SPECIFIC GRAVITY 1.015 (1.005-1.020); SPERMATOZOA PRESENT /hpf (NONE SEEN); WHITE CELLS - URINE OCC /hpf (0-5)
[2018-11-04 13:27] LABS: UDS - AMPHET POSITIVE QUAL (NEGATIVE); UDS - BARB NEGATIVE QUAL (NEGATIVE); UDS - BENZO NEGATIVE QUAL (NEGATIVE); UDS - COCAINE NEGATIVE QUAL (NEGATIVE); UDS - OPIATE NEGATIVE QUAL (NEGATIVE); UDS - PCP NEGATIVE QUAL (NEGATIVE); UDS - THC NEGATIVE QUAL (NEGATIVE)
[2018-11-04] MEDS ORDERED: TEGRETOL200 MG PO (13:48)
[2018-11-04] MEDS ORDERED: KEPPRA500 MG PO (13:48)
[2018-11-04 14:08] VITALS: BP 120/72
== END 2018-11-04 14:09 | disposition home or self-care (01) ==
LOC: D.ER 12:21
PROVIDERS: Family Medicine
DX: G40.909 Epilepsy, unspecified, not intractable, without status epilepticus (principal); F15.10 Other stimulant abuse, uncomplicated; Z91.14 Patient's other noncompliance with medication regimen

== ENCOUNTER 2018-12-03 23:08 | Emergency (ER) | payer MEDICAID ==
[~2018-12-03] VITALS: Ht 172.7 cm; Wt 90.9 kg
[2018-12-03 23:13] VITALS: Ht 172.7 cm; Wt 90.9 kg
[2018-12-03] MEDS ORDERED: BACTRIM 400-801 TAB PO (23:41)
[2018-12-03] MEDS ORDERED: NAPROSYN500 MG PO (23:41)
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
[2018-12-04 00:05] VITALS: BP 126/80
== END 2018-12-04 00:05 | disposition home or self-care (01) ==
LOC: D.ER 23:08
DX: L02.414 Cutaneous abscess of left upper limb (principal)

== ENCOUNTER 2018-12-06 23:54 | Inpatient (IN) | payer MEDICAID ==
[~2018-12-06] VITALS: Ht 172.7 cm; Wt 75.5 kg
[~2018-12-06 23:54] MED LIST changes: +BACTRIM 400-801 TAB PO
[2018-12-07] MEDS ORDERED: TEGRETOL200 MG PO (00:01)
--- NOTE | 2018-12-07 00:13 | NUR ---
PT TAKEN TO SECURE ROOM 20. CHANGED INTO SCRUBS. BELONGINGS SECURED AND PLACED IN UTILITY ROOM. UP TO GIVE URINE. LIVING COACH NOTIFIED OF NEED FOR MENTAL HEALTH ASSESSMENT TO BE DONE.
[2018-12-07 00:26] LABS: BASOPHILS 0.6 % (0-2); EOSINOPHILS 2.9 % (0-7); HEMATOCRIT 39.3 % (42.0-54.0); HEMOGLOBIN 14.1 g/dL (13.5-17.5); IMMATURE GRANULOCYTES 0.4 % (0-5); LYMPHOCYTES 35.5 % (15-50); MCH 34.6 pg (26.0-34.0); MCHC 35.9 g/dL (31.0-37.0); MCV 96.6 fL (80.0-100.0); MEAN PLATELET VOLUME 8.6 fL (7.4-10.4); MONOCYTES 14.8 % (2-11); NEUTROPHILS 45.8 % (40-80); RBC 4.07 10x6/uL (4.20-6.10); RDW 13.3 % (11.5-14.5)
[2018-12-07 00:28] LABS: PLATELET COUNT 267 10x3/uL (130-400)
--- NOTE | 2018-12-07 00:34 | NUR ---
EKATERINA NATARAJAN HERE FROM MENTAL HEALTH TO DO ASSESSMENT.
[2018-12-07 00:38] LABS: ALBUMIN 3.2 g/dL (3.4-5.0); ALKALINE PHOSPHATASE 101 U/L (46-116); ALT (SGPT) 111 U/L (10-68); BILIRUBIN - TOTAL 0.19 mg/dL (0.2-1.3); CALC OSMOLALITY 269 mosm/kg (275-300); CALCIUM 8.9 mg/dL (8.5-10.1); CARBON DIOXIDE 26.1 mmol/L (21.0-32.0); CHLORIDE - SERUM 101 mmol/L (98-107); CREATININE - SERUM 0.8 mg/dL (0.6-1.3); GLUCOSE 95 mg/dL (74-106); POTASSIUM - SERUM 4.4 mmol/L (3.5-5.1); SODIUM 136 mmol/L (136-145); UREA NITROGEN 7 mg/dL (7-18); eGFR NON AFRICAN AMERICAN > 90 mL/min (90-120)
[2018-12-07 00:42] LABS: APPEARANCE CLEAR (CLEAR); BILIRUBIN NEGATIVE (NEGATIVE); COLOR YELLOW (YELLOW); GLUCOSE NEGATIVE (NEGATIVE); KETONE NEGATIVE (NEGATIVE); NITRITE NEGATIVE (NEGATIVE); PROTEIN NEGATIVE (NEGATIVE); UROBILINOGEN NORMAL (NORMAL)
[2018-12-07 00:43] LABS: UDS - AMPHET POSITIVE QUAL (NEGATIVE); UDS - BARB NEGATIVE QUAL (NEGATIVE); UDS - BENZO NEGATIVE QUAL (NEGATIVE); UDS - COCAINE NEGATIVE QUAL (NEGATIVE); UDS - OPIATE NEGATIVE QUAL (NEGATIVE); UDS - PCP NEGATIVE QUAL (NEGATIVE); UDS - THC NEGATIVE QUAL (NEGATIVE)
[2018-12-07 00:44] LABS: BACTERIA FEW /hpf (NONE SEEN); EPITHELIAL CELLS 0-5 /hpf (0-5); RED CELLS - URINE NONE SEEN /hpf (0-5); WHITE CELLS - URINE 0-5 /hpf (0-5)
--- NOTE | 2018-12-07 01:18 | NUR ---
DR. BREWSTER NOTIFIED AND SITTER ORDERED. SITTER AT BEDSIDE. NOTIFIED CHARGE NURSE AND ATTENDING IN REGARDS TO ASSESSMENT FINDINGS. RESOURCES GIVEN TO PT AND SAFETY PLAN INITIATED.
--- NOTE | 2018-12-07 03:51 | NUR ---
REPORT TO EKATERINA GANNON. PT TRANSPORTED TO ROOM PER EKATERINA SANTIZO. IV NS AT 200ML AND VANCOMYCIN IVPB CON'T ON ADMISSION. EKATERINA NATARAJAN SITTER TO ACCOMPANY PT TO CON'T SUICIDE WATCH.
--- NOTE | 2018-12-07 03:59 | NUR ---
REC'D TO ROOM 2220 FROM ER DEPT PER W/C A 38 Y/O W/M PER SERVICES DR. FRAZIER/FÉLIX ON CONSULT. WITH DX ABCESS LEFT ELBOW. DRSG TO LEFT ELBOW C/D/I. ALLERGY PEANUTS. ASSESSMENT PER ADMIT PACKET. IV RT ARM OF VANCOMYCIN INFUSING.
[2018-12-07 04:42] VITALS: BP 101/69
--- NOTE | 2018-12-07 05:00 | NUR ---
IV VANCO COMPLETED CHANGED TO NS AT 200CC'S/HR. ALL CORDS/PHONES AND SCD MACHINE AND TRASHCAN REMOVED FROM ROOM. PSYCH NURSE AT BEDSIDE FOR ONE ON ONE OBSERVATION FOR SUICIDAL IDEATIONS.PT REMAINS NPO. PT SLEEPING IN BED. SR UP X2 CALL LIGHT WITHIN REACH.
[2018-12-07 05:06] VITALS: BP 101/69; BMI 25.3
[2018-12-07 09:08] VITALS: BP 105/69
[2018-12-07 12:17] VITALS: BP 110/64
[2018-12-07 12:48] VITALS: BMI 25.3
[2018-12-07 13:03] VITALS: Ht 172.7 cm; Wt 75.5 kg
--- NOTE | 2018-12-07 13:49 | NUR ---
PATIENT STATES THAT HE HAS NOT HAD SUICIDAL THOUGHTS SINCE THE LAST TIME HE WAS ASSESSED. PATIENT QUIET, RESTING IN BED, TV ON, AWAITING PHYSICIAN.
[2018-12-07 16:45] VITALS: BP 106/61
--- NOTE | 2018-12-07 19:31 | NUR ---
PATIENT CONTINUES TO DENY SUICIDAL THOUGHTS. SITTER AT BEDSIDE FOR CONTINUED LINE OF SITE OBSERVATION. IV INFUSING AND PATENT.
--- NOTE | 2018-12-07 20:00 | NUR ---
ASSESSMENT PER CINDY. IV PATENT RT ARM OF NS AT 200CC'S/HR.SITE CLEAR. SR UP X2 CALL LIGHT WITHIN REACH MHT AT BEDSIDE ONE-ON-ONE SITTER. PERMITS SIGNED AND ON CHART FOR AM SURGERY.
--- NOTE | 2018-12-07 21:00 | NUR ---
MEDS GIVEN PER MAR.
[2018-12-07 21:37] VITALS: BP 119/77
--- NOTE | 2018-12-07 22:08 | NUR ---
RESTING QUIETLY DENIES NEEDS.
[2018-12-08] VITALS (11 sets, daily range): BP systolic 92–126; BP diastolic 52–86
--- NOTE | 2018-12-08 00:01 | NUR ---
EYES CLOSED RESPIRATIONS WITH EASE AND UNLABORED. SITTER AT BEDSIDE.
--- NOTE | 2018-12-08 00:02 | NUR ---
NPO FOR F1AELBIG IN AM.
[2018-12-08 06:49] LABS: BASOPHILS 0.6 % (0-2); EOSINOPHILS 1.6 % (0-7); HEMATOCRIT 36.8 % (42.0-54.0); HEMOGLOBIN 12.4 g/dL (13.5-17.5); IMMATURE GRANULOCYTES 0.3 % (0-5); LYMPHOCYTES 26.9 % (15-50); MCH 33.8 pg (26.0-34.0); MCHC 33.7 g/dL (31.0-37.0); MEAN PLATELET VOLUME 9.3 fL (7.4-10.4); MONOCYTES 12.4 % (2-11); NEUTROPHILS 58.2 % (40-80); RBC 3.67 10x6/uL (4.20-6.10); RDW 13.7 % (11.5-14.5)
[2018-12-08 07:11] LABS: MCV 100.3 fL (80.0-100.0); PLATELET COUNT 211 10x3/uL (130-400); WBC 6.4 10x3/uL (4.8-10.8)
[2018-12-08 07:33] LABS: ALKALINE PHOSPHATASE 67 U/L (46-116); BILIRUBIN - TOTAL 0.33 mg/dL (0.2-1.3); CALCIUM 8.1 mg/dL (8.5-10.1); CARBON DIOXIDE 26.4 mmol/L (21.0-32.0); CHLORIDE - SERUM 105 mmol/L (98-107); GLUCOSE 100 mg/dL (74-106); POTASSIUM - SERUM 4.1 mmol/L (3.5-5.1); PROTEIN - SERUM 6.1 g/dL (6.4-8.2); SODIUM 139 mmol/L (136-145); eGFR NON AFRICAN AMERICAN 90 mL/min (90-120)
[2018-12-08 07:37] LABS: ALBUMIN 2.2 g/dL (3.4-5.0); ALT (SGPT) 67 U/L (10-68); CALC OSMOLALITY 276 mosm/kg (275-300); UREA NITROGEN 9 mg/dL (7-18)
--- NOTE | 2018-12-08 08:09 | NUR ---
AM MEDS GIVEN WITH A SIP OF WATER, IVPB ZOSYN HUNG AT THIS TIME. PT LAYING IN BED, WATCHING TV, DENIES ANY NEEDS AT THIS TIME. CALL LIGHT IN REACH, SITTER AT BEDSIDE, NAD NOTED, WILL CONTINUE TO MONITOR.
[2018-12-08 08:11] LABS: HEPATITIS C ANTIBODY <0.1 S/CO RAT (0.0-0.9)
--- NOTE | 2018-12-08 11:20 | NUR ---
PRE-OP MEDS GIVEN AT THIS TIME. PT RESTING COMFORTABLY IN BED, CALL LIGHT IN REACH, SITTER AT BEDSIDE,NAD NOTED,W ILL CONTINUE TO MONITOR.
--- NOTE | 2018-12-08 11:54 | NUR ---
PT TO OR AT THIS TIME VIA BED, NAD NOTED.
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
--- NOTE | 2018-12-08 13:33 | MORECARE ---
CASE MANAGEMENT DISCHARGE SUMMARY PATIENT: ARIANNE HAWK UNIT: [id number] ADM DATE: 12/07/18 AGE: 38 : [birth year] SEX: M ROOM/BED: D.2220 AUTHOR: MIR SOTO PHYSICIAN: REFERRING PHYSICIAN: PATRICIA FRAZIER MD DATE OF SERVICE: 12/08/18 Discharge Plan Patient Name: ARIANNE HAWK [facility] [facility] 1980 Planned Disposition: Anticipated Discharge Date: Discharge Date: Expected LOS: Initial Reviewer: [email or web address] Initial Review Date: 12/07/2018 Generated: 12/08/18 2:33 pm Comments DCP- Discharge Planning Updated by [email or web address]: Do Little on 12/08/18 12:[address] Attempted to see patient this AM, he was sleeping. There is a sitter at bedside. Will try again at a later time Patient Name: ARIANNE HAWK Page [id number] at 1333 All edits/amendments must be made on the electronic document DICTATION DATE: 12/08/18 1333 BIOINFORMATICS ASSISTANT: THO 12/08/18 1333 RPT#: [id number] DC DATE: STATUS: ADM IN [facility] [address] [place] [address] END OF REPORT
--- NOTE | 2018-12-08 13:59 | NUR ---
RECEIVED PT BACK TO ROOM 2220, PT A LITTLE DROWSY BUT EASILY AROUSES TO VOICE. RATES PAIN LEVEL OF 10/10. VITAL SIGNS STABLE, PLACED PT ON FREQUENT VITAL SIGNS. DRESSING NOTED TO LT ARM. WILL SEE IF PT HAS SOMETHING FOR PAIN. SITTER AT BEDSIDE, CALL LIGHT IN REACH, NAD NOTED,W ILL CONTINUE TO MONITOR.
--- NOTE | 2018-12-08 14:27 | NUR ---
NOTIFIED HEAT SEAL OPERATOR WITH DR. FRAZIER THAT PT IS ASKING FOR SOMETHING FOR PAIN ONLY HAS TYLENOL ORDERED.
--- NOTE | 2018-12-08 14:47 | NUR ---
PT RESTING COMFORTABLY IN BED WITH EYES CLOSED, SITTER AT BEDSIDE, CALL LIGHTIN REACH.
--- NOTE | 2018-12-08 15:26 | NUR ---
PT DENIES SI AT THIS TIME. SITTER AT BEDSIDE. PT VERY TIRED FROM PROCEDURE.
--- NOTE | 2018-12-08 18:48 | NUR ---
PER DR. BREWSTER, PT DOES NOT NEED A SITTER ANYMORE. NOTIFIED ARLET KAMINSKITEACHER [employer]S.
[2018-12-09 01:27] VITALS: BP 124/60
[2018-12-09 05:45] VITALS: BP 139/65
[2018-12-09 06:30] LABS: BASOPHILS 0.3 % (0-2); EOSINOPHILS 0.8 % (0-7); HEMOGLOBIN 12.1 g/dL (13.5-17.5); IMMATURE GRANULOCYTES 0.3 % (0-5); LYMPHOCYTES 30.3 % (15-50); MCH 33.7 pg (26.0-34.0); MCHC 33.6 g/dL (31.0-37.0); MCV 100.3 fL (80.0-100.0); MEAN PLATELET VOLUME 9.4 fL (7.4-10.4); MONOCYTES 10.1 % (2-11); NEUTROPHILS 58.2 % (40-80); PLATELET COUNT 215 10x3/uL (130-400); RBC 3.59 10x6/uL (4.20-6.10); RDW 13.6 % (11.5-14.5); WBC 7.7 10x3/uL (4.8-10.8)
[2018-12-09 06:43] LABS: CALC OSMOLALITY 278 mosm/kg (275-300); CALCIUM 8.2 mg/dL (8.5-10.1); CARBON DIOXIDE 26.8 mmol/L (21.0-32.0); CHLORIDE - SERUM 104 mmol/L (98-107); CREATININE - SERUM 0.9 mg/dL (0.6-1.3); GLUCOSE 121 mg/dL (74-106); POTASSIUM - SERUM 3.8 mmol/L (3.5-5.1); SODIUM 140 mmol/L (136-145); UREA NITROGEN 11 mg/dL (7-18); eGFR NON AFRICAN AMERICAN > 90 mL/min (90-120)
--- NOTE | 2018-12-09 08:00 | NUR ---
ASSESSMENT PER FLOW SHEET. PT IS WITHOUT DISTRESS.DRESSING TO LEFT ARM CLEAN,DRY AND INTACT. PT DENIES NEEDS.
[2018-12-09 09:39] VITALS: BP 144/82
--- NOTE | 2018-12-09 12:00 | NUR ---
REMAINS WITHOUT NEEDS.CALL LIGHT IN REACH
[2018-12-09 12:56] VITALS: BP 126/69
--- NOTE | 2018-12-09 13:21 | MORECARE ---
CASE MANAGEMENT DISCHARGE SUMMARY PATIENT: ARIANNE HAWK UNIT: [id number] ADM DATE: 12/07/18 AGE: 38 : [birth year] SEX: M ROOM/BED: D.2220 AUTHOR: MIR SOTO PHYSICIAN: REFERRING PHYSICIAN: PATRICIA FRAZIER MD DATE OF SERVICE: 12/09/18 Discharge Plan Patient Name: ARIANNE HAWK [facility] [facility] 1980 Planned Disposition: Home or Self Care Anticipated Discharge Date: Discharge Date: Expected LOS: Initial Reviewer: [email or web address] Initial Review Date: 12/07/2018 Generated: 12/09/18 2:20 pm Comments DCP- Discharge Planning Updated by [email or web address]: Do Little on 12/08/18 12:[address] Attempted to see patient this AM, he was sleeping. There is a sitter at bedside. Will try again at a later time DCPIA - Discharge Planning Initial Assessment Updated by [email or web address]: Do Little on 12/09/18 1:15 pm * PCP NONE * Pharmacy [facility] * Preadmission Environment Home with Family * ADLs Independent * Equipment None * List name and contact numbers for known caregivers / representatives who currently or will assist patient after discharge: ISABELL DUKE (AUNT) [phone] * Verbal permission to speak to the caregivers and representatives has been obtained from the patient. N/A * Community resources currently utilized None * Additional services required to return to the preadmission environment? No * Can the patient safely return to the preadmission environment? Yes * Has this patient been hospitalized within the prior 30 days at any hospital? No Last DP export: 12/08/18 12:33 p Patient Name: ARIANNE HAWK Page 07006 at 1321 All edits/amendments must be made on the electronic document DICTATION DATE: 12/09/18 1320 DB2 DBA: THO 12/09/18 1320 RPT#: [id number] DC DATE: STATUS: ADM IN [facility] [address] [place] [address] END OF REPORT
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
--- NOTE | 2018-12-09 15:02 | CN ---
PATIENT NAME:ARIANNE HAWK MEDICAL RECORD: [id number] : 84 LOCATION:D.MS [facility]2220 ADMIT DATE: 12/07/18 ACCOUNT: [id number] CONSULTING PHYSICIAN: CLEOPATRA BREWSTER MD REFERRING PHYSICIAN: PATRICIA FRAZIER MD DATE OF CONSULTATION: 12/08/2018 IDENTIFYING DATA: The patient is 38 years old and he is admitted to the hospital on a voluntary basis. CHIEF COMPLAINT: Polysubstance abuse. HISTORY OF PRESENT ILLNESS: The patient is severely addicted to alcohol and methamphetamine. He is using methamphetamine on an intravenous basis and had an abscess that required debridement. He tells me that he has a seizure disorder and that is why he takes Tegretol. He also tells me he has seen a psychiatrist in the past and had been on various psychiatric medications, but has been lost to follow up primarily because of financial issues. He was intoxicated yesterday as well as high on methamphetamine and made some suicidal statements, which he now retracts. He has a few neurovegetative depressive symptoms, but not really enough to rise to the level of being diagnosed with major depression. Clearly, his primary problem is one of substance abuse and the primary substance that is the problem is the methamphetamine. He says he does drink on a regular basis, but usually not to excess. He was upset yesterday because an old girlfriend had an argument with him and he was unusually distressed. I think he is probably minimizing the amount he drinks and I would certainly watch him for evidence of alcohol withdrawal. MENTAL STATUS EXAMINATION: The patient is awake, alert and fully oriented to person, place, time and situation. His mood is flat. His affect is constricted. Thought processes are circumstantial. Memory, concentration, and abstraction abilities are mildly impaired and he denies any active intent to harm himself or others as well as overt psychotic symptoms. ASSESSMENT: 1. Methamphetamine abuse. 2. Alcohol abuse. PLAN: At this time, the patient is not suicidal and I do not think he needs a sitter. He does not need inpatient psychiatric care, but I do think he would benefit from outpatient psychiatric followup and would recommend that that take place. He is willing to go to an outpatient psychiatric appointment. He also is in need of a primary care physician and I would ask case management to assist him with that. Regarding his substance abuse problem, he is not very interested in treatment, feels he has it under control and is not willing to go to any sort of residential program. I think this is unfortunate, but this is the situation. He seems to think that if he can get on to proper psychiatric medications that that will no longer require him to use methamphetamine and alcohol. I have told him that this is flatly absurd and not the case, but he dismisses that and insists it is the other way around. I do not think there is criteria to force him into an involuntary substance abuse treatment. I would strongly recommend that he be given information regarding various outpatient programs such as [facility] and Alcoholics Anonymous. Hopefully, he will attend and curb his usage. He is not homeless. He does have a place to stay in [place] and he says there are utilities there. He has been unable to find a ride back CONSULT REPORT [id number] ARIANNE HAWK to [place]. He has been busy drinking and using drugs here in [place] with various individuals. I think his long-term prognosis is extremely guarded and is entirely contingent upon his ability to stop using methamphetamine and alcohol. Outpatient mental health appointments might be helpful, especially if the treating clinician is aware of his substance abuse problem. He does not need a sitter and it may be discontinued. TRANSINT:[id number] Voice Confirmation ID: [id number] DOCUMENT ID: [id number] CLEOPATRA BREWSTER MD at 1502 CC: [id number] DICTATION DATE: 12/08/18 173 PROFESSOR OF ARCHAEOLOGY: 12/08/18 2336 [facility] IN [place] [address] [place] [address]
[2018-12-09 17:23] VITALS: BP 138/78
--- NOTE | 2018-12-09 19:00 | NUR ---
BEDSIDE REPORT RECEIVED AND CARE OF PT ASSUMED. PT LYING IN HIGH MOSES'S POSITION WATCHING TV. DRESSING ON LEFT ARM CLEAN, DRY AND INTACT. IV TO RIGHT AC PATENT WITH NS INFUSING AT 75 ML/HR. WILL MONITOR FOR NEEDS.
--- NOTE | 2018-12-09 19:08 | NUR ---
DRESSING TO LEFT ARM CDI. PT IS WITHOUT CHANGE.HE DENIES NEEDS.CONT PLAN OF CARE
[2018-12-09 20:00] VITALS: BP 138/68
--- NOTE | 2018-12-09 20:35 | NUR ---
HS MEDICATIONS GIVEN TO INCLUDE NORCO PO PER REQUEST FOR PAIN. WILL CONTINUE TO MONITOR FOR NEEDS.
--- NOTE | 2018-12-09 20:45 | NUR ---
GAVE TURKEY SANDWICH TRAY AND X2 SODAS FOR HS SNACK.
[2018-12-10] VITALS: BP 117/76
[2018-12-10 04:00] VITALS: BP 134/67
[2018-12-10 06:35] LABS: BASOPHILS 0.3 % (0-2); EOSINOPHILS 1.1 % (0-7); HEMATOCRIT 34.3 % (42.0-54.0); HEMOGLOBIN 11.5 g/dL (13.5-17.5); IMMATURE GRANULOCYTES 0.3 % (0-5); LYMPHOCYTES 34.5 % (15-50); MCH 33.5 pg (26.0-34.0); MCHC 33.5 g/dL (31.0-37.0); MEAN PLATELET VOLUME 9.5 fL (7.4-10.4); NEUTROPHILS 54.8 % (40-80); PLATELET COUNT 246 10x3/uL (130-400); RBC 3.43 10x6/uL (4.20-6.10); RDW 13.7 % (11.5-14.5); WBC 6.2 10x3/uL (4.8-10.8)
[2018-12-10 07:04] LABS: CALC OSMOLALITY 281 mosm/kg (275-300); CALCIUM 8.2 mg/dL (8.5-10.1); CARBON DIOXIDE 27.5 mmol/L (21.0-32.0); CHLORIDE - SERUM 105 mmol/L (98-107); CREATININE - SERUM 1.1 mg/dL (0.6-1.3); GLUCOSE 98 mg/dL (74-106); POTASSIUM - SERUM 3.5 mmol/L (3.5-5.1); SODIUM 142 mmol/L (136-145); UREA NITROGEN 9 mg/dL (7-18); eGFR NON AFRICAN AMERICAN 80 mL/min (90-120)
[2018-12-10 07:50] VITALS: BP 107/69
--- NOTE | 2018-12-10 10:47 | EC ---
PATIENT:ARIANNE HAWK DATE OF SERVICE: 12/07/18 SEX: M MEDICAL RECORD: [id number] DATE OF : [birth year] LOCATION:D.MS [address]ayson222 AGE OF PATIENT: 38 ADMISSION DATE: 12/07/18 REFERRING PHYSICIAN: INTERPRETING PHYSICIAN: JANET COHEN MD ECHOCARDIOGRAM REPORT ECHO CHARGES 4 ECHO COMPLETE Date: 12/08/18 CLINICAL DIAGNOSIS: R/O VEGETATION ECHOCARDIOGRAPHIC MEASUREMENTS (adult normal given) AC root (d.<3.7cm) 3.3 cm LV Septum d (<1.2 cm> 1.2 cm Valve Excursion 1.9 cm LV Septum (systole) 1.7 cm Left Atria (s.<4.0cm> 3.1 cm LVPW d(<1.2cm) 1.1 cm RV (d.<2.3cm) 2.8 cm LVPW (sytole) 1.9 cm LV diastole(<5.6CM) 5.0 cm MV E-F(>70mm/sec) cm LV systole 3.1 cm LVOT Diameter 1.9 cm MV exc.(>10mm) cm Est.ejection fraction (50-75%) % DOPPLER: LVIT cm/sec A 31.0 cm/sec E 85.0 cm/sec LA cm/sec RVSP 26.2 mmHg LVOT 96.0 cm/sec AOP1/2T m/s Asc. Ao 134 cm/sec RVOT 51.0 cm/sec RA cm/sec PA 88.0 cm/sec AV Gradient Peak 7.1 mmHg AV Mean 3.4 mmHg AV Area 2.2 cm MV Gradient Peak 3.8 mmHg MV Mean 0.86 mmHg MV Area cm COMMENTS: Camp Director: Dahlia LINKOE Personal Trainer: 1 Dr. Cohen TAPE# PACS Pericardial Effusion N DATE OF SERVICE: 12/08/2018 PROCEDURE: Echocardiogram. FINDINGS: 1. Left ventricular chamber size is within normal limits. Left ventricular systolic function is normal at 50%. 2. Left atrium is within normal limits. Right atrium and right ventricular chamber sizes are mildly dilated. 3. Valvular structures have normal structure and motion. No evidence of ECHOCARDIOGRAM REPORT [id number] ARIANNE HAWK vegetative endocarditis. 4. Doppler interrogation reveals mild mitral regurgitation, mild tricuspid regurgitation, no other valvular insufficiency or stenosis. Pulmonary systolic pressure is estimated at 26 mmHg. 5. No evidence of pericardial effusion or left ventricular thrombus. TRANSINT:[id number] Voice Confirmation ID: [id number] DOCUMENT ID: [id number] JANET COHEN MD at 1047 CC: [id number] DICTATION DATE: 12/08/18 1232 CLEANER INDUSTRIAL: 12/08/18 1301 ADM IN [place] [address] [place] [id number]
[2018-12-10 12:46] VITALS: BP 109/69
--- NOTE | 2018-12-10 13:36 | NUR ---
Nutrition follow-up: Diet: Regular PO intake 100% of meals labs reviewed WT: 166# +BM RDN following.
--- NOTE | 2018-12-10 16:29 | NUR ---
PATIENT DRESSING CHANGED TO LEFT ARM AT THIS TIME PER ORDERS. TELFA PLACED OVER SUTURES, WRAPPED WITH KERLIX AND LON WRAP. NO FRESH DRAINAGE. INCISION AND SUTURES CLEAN AND DRY. IV INTACT. CALL LIGHT WITHIN REACH.
[2018-12-10 16:48] VITALS: BP 120/83
--- NOTE | 2018-12-10 19:00 | NUR ---
BEDSIDE REPORT RECEIVED AND CARE OF PT ASSUMED. PT LYING IN SUPINE POSITION WATCHING TV. DRESSING ON LEFT ARM CLEAN, DRY AND INTACT. IV TO RIGHT AC PATENT WITH NS INFUSING AT 75 ML/HR. WILL MONITOR FOR NEEDS.
--- NOTE | 2018-12-10 19:54 | NUR ---
HS MEDICATIONS GIVEN TO INCLUDE NORCO FOR PAIN, PER REQUEST.
[2018-12-10 20:00] VITALS: BP 121/65
--- NOTE | 2018-12-10 20:15 | NUR ---
GAVE TURKEY SANDWICH TRAY AND COLA FOR HS SNACK.
[2018-12-11] VITALS: BP 137/73
[2018-12-11 04:00] VITALS: BP 146/76
[2018-12-11 06:50] LABS: BASOPHILS 0.4 % (0-2); EOSINOPHILS 1.9 % (0-7); HEMATOCRIT 34.8 % (42.0-54.0); HEMOGLOBIN 11.8 g/dL (13.5-17.5); IMMATURE GRANULOCYTES 0.7 % (0-5); LYMPHOCYTES 30.6 % (15-50); MCH 33.6 pg (26.0-34.0); MCHC 33.9 g/dL (31.0-37.0); MCV 99.1 fL (80.0-100.0); MEAN PLATELET VOLUME 9.7 fL (7.4-10.4); MONOCYTES 12.6 % (2-11); NEUTROPHILS 53.8 % (40-80); PLATELET COUNT 249 10x3/uL (130-400); RBC 3.51 10x6/uL (4.20-6.10); RDW 13.5 % (11.5-14.5); WBC 5.7 10x3/uL (4.8-10.8)
[2018-12-11 07:02] LABS: CALC OSMOLALITY 276 mosm/kg (275-300); CALCIUM 8.3 mg/dL (8.5-10.1); CARBON DIOXIDE 29.5 mmol/L (21.0-32.0); CHLORIDE - SERUM 104 mmol/L (98-107); GLUCOSE 96 mg/dL (74-106); POTASSIUM - SERUM 3.7 mmol/L (3.5-5.1); SODIUM 140 mmol/L (136-145); UREA NITROGEN 8 mg/dL (7-18); eGFR NON AFRICAN AMERICAN 90 mL/min (90-120)
[2018-12-11 09:04] VITALS: BP 104/57
[2018-12-11] MEDS ORDERED: DOXYCYCLINE HY100 M2 PO (11:06)
--- NOTE | 2018-12-11 11:32 | NUR ---
REC'D PT LYING IN BED, RESP EVEN AND UNLABORED IV TO RIGHT AC PATENT AND INTACT AT THIS TIME. PT DENIES NEEDS AT THIS TIME. BED AT LOWEST SETTING WITH BRAKES ON. SRX2 CALL LIGHT WITHIN REACH WILL CONTINUE TO MONITOR
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
[2018-12-11 12:30] VITALS: BP 117/64
--- NOTE | 2018-12-11 14:39 | NUR ---
IV DISCONTINUED WITH CATHETER INTACT AT THIS TIME. DISCHARGE INSTRUCTIONS GIVEN AND VERBALIZES UNDERSTANDING AT THIS TIME. PT TAKEN VIA WHEELCHAIR TO HOSPITAL ENTRANCE AT THIS TIME.
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
[2018-12-17 18:08] LABS: AEROBE ID Final report (())
== END 2018-12-11 14:42 | disposition home or self-care (01) | DRG 580 ==
LOC: D.ER 23:54 → D.MS 12-07 01:09 → D.SDCHOLD 12-07 09:44 → D.MS 12-11 14:42
PROVIDERS: Family Medicine; Orthopaedic Surgery; ADMIT Internal Medicine Nephrology; ATTEND Internal Medicine Nephrology
PROC: 0JDH0ZZ Extraction of Left Lower Arm Subcutaneous Tissue and Fascia, Open Approach (ICD-10-PCS; 2018-12-08)
PROC: 0H9EXZZ Drainage of Left Lower Arm Skin, External Approach (ICD-10-PCS; principal; 2018-12-08 12:28)
DX: L02.414 Cutaneous abscess of left upper limb (principal); R45.851 Suicidal ideations; F10.10 Alcohol abuse, uncomplicated; F15.10 Other stimulant abuse, uncomplicated; G40.909 Epilepsy, unspecified, not intractable, without status epilepticus; B95.0 Streptococcus, group A, as the cause of diseases classified elsewhere

== ENCOUNTER 2018-12-18 19:04 | Inpatient (IN) | payer MEDICAID ==
[~2018-12-18] VITALS: Ht 172.7 cm; Wt 66.5 kg
[~2018-12-18 19:04] MED LIST changes: +DOXYCYCLINE HY100 M2 PO
--- NOTE | 2018-12-18 19:15 | NUR ---
LOCAL SUPERINTENDENT CHELO TOBAR NOTIFIED WE NEED SUICIDE SCREEN ON PATIENT
--- NOTE | 2018-12-18 19:21 | NUR ---
MENTAL HEALTH ASSESSMENT BEING PERFORMED AT BEDSIDE BY RN.
--- NOTE | 2018-12-18 19:32 | NUR ---
PATIENT IS IN ER ROOM 13 FOR FOR HAVING A SEIZURE. PT. HAS BEEN SUICIDAL IN HIS LIFETIME BUT IS NOT CURRENTLY SUICIDAL. PT. IS INCARCERATED AT THIS TIME. SUICIDE PREVENTION RESOURCE SHEET GIVEN TO PATIENT
--- NOTE | 2018-12-18 20:10 | NUR ---
PT RESTING ON BED. NO S/S OF ACUTE DISTRESS NOTED. PT AWAKE AND ALERT, WATCHING TV.
[2018-12-18 20:33] LABS: ALBUMIN 3.2 g/dL (3.4-5.0); ALKALINE PHOSPHATASE 90 U/L (46-116); ALT (SGPT) 28 U/L (10-68); BILIRUBIN - TOTAL 0.18 mg/dL (0.2-1.3); CALC OSMOLALITY 280 mosm/kg (275-300); CALCIUM 9.1 mg/dL (8.5-10.1); CARBON DIOXIDE 29.7 mmol/L (21.0-32.0); CHLORIDE - SERUM 102 mmol/L (98-107); CREATININE - SERUM 0.9 mg/dL (0.6-1.3); GLUCOSE 92 mg/dL (74-106); POTASSIUM - SERUM 4.5 mmol/L (3.5-5.1); PROTEIN - SERUM 7.3 g/dL (6.4-8.2); SODIUM 141 mmol/L (136-145); UREA NITROGEN 12 mg/dL (7-18); eGFR NON AFRICAN AMERICAN > 90 mL/min (90-120)
[2018-12-18 20:42] LABS: CARBAMAZEPINE (TEGRETOL) 0.9 ug/mL (4.0-12.0); CREATINE KINASE 50 UL (21-232); LIPASE 221 U/L (73-393); THYROID STIMULATING HORMONE 1.81 uIU/mL (0.36-3.74)
[2018-12-18 21:04] LABS: BASOPHILS 0.6 % (0-2); EOSINOPHILS 0.7 % (0-7); HEMATOCRIT 35.4 % (42.0-54.0); HEMOGLOBIN 12.6 g/dL (13.5-17.5); IMMATURE GRANULOCYTES 0.7 % (0-5); LYMPHOCYTES 13.6 % (15-50); MCH 34.1 pg (26.0-34.0); MCHC 35.6 g/dL (31.0-37.0); MCV 95.7 fL (80.0-100.0); MEAN PLATELET VOLUME 9.1 fL (7.4-10.4); MONOCYTES 11.8 % (2-11); NEUTROPHILS 72.6 % (40-80); RDW 12.8 % (11.5-14.5); WBC 9.7 10x3/uL (4.8-10.8)
[2018-12-18 21:05] LABS: PLATELET COUNT 315 10x3/uL (130-400)
--- NOTE | 2018-12-18 21:55 | NUR ---
STAR HA AT PT BEDSIDE PLACING SUTURES ABOVE R EYE.
--- NOTE | 2018-12-18 22:10 | NUR ---
SUTURES REMOVED PER EDP WILHELM INSTRUCTION. 10 SUTURES REMOVED, INTACT. PT TOLERATED WELL.
--- NOTE | 2018-12-18 22:20 | NUR ---
STERI STRIPS APPLIED TO L FOREARM AFTER SUTURES REMOVED.
[2018-12-18 23:53] VITALS: BP 101/54; Ht 172.7 cm; Wt 66.5 kg
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
[2018-12-19 01:07] VITALS: BP 101/54
--- NOTE | 2018-12-19 01:58 | NUR ---
UP ON ASSESSMENT PT DENIED BEING SUCICIDAL. WHEN COMPLETEING RISK ASSESSMENT STATED A COUPLE OF WEEKS AGO HE THOUGHT ABOUT SUCICIDE AND HAD A PLAN ON HOW TO DO IT. THEN STATED NOT NOW "I DON'T WANT TO NOW." GLASS CALIBRATOR NOTIFIED AND PT WILL BE ASSESS BY PSYCH NURSE.
[2018-12-19 04:36] VITALS: BP 99/53
[2018-12-19 06:25] LABS: BASOPHILS 0.4 % (0-2); EOSINOPHILS 1.2 % (0-7); HEMATOCRIT 34.2 % (42.0-54.0); HEMOGLOBIN 11.7 g/dL (13.5-17.5); IMMATURE GRANULOCYTES 0.1 % (0-5); LYMPHOCYTES 22.6 % (15-50); MCH 33.9 pg (26.0-34.0); MCHC 34.2 g/dL (31.0-37.0); MEAN PLATELET VOLUME 9.4 fL (7.4-10.4); MONOCYTES 14.4 % (2-11); NEUTROPHILS 61.3 % (40-80); PLATELET COUNT 300 10x3/uL (130-400); RBC 3.45 10x6/uL (4.20-6.10); RDW 13.1 % (11.5-14.5); WBC 8.2 10x3/uL (4.8-10.8)
[2018-12-19 06:41] LABS: MCV 99.1 fL (80.0-100.0)
[2018-12-19 07:00] LABS: ALBUMIN 2.6 g/dL (3.4-5.0); ALKALINE PHOSPHATASE 78 U/L (46-116); ALT (SGPT) 26 U/L (10-68); BILIRUBIN - TOTAL 0.22 mg/dL (0.2-1.3); CALC OSMOLALITY 277 mosm/kg (275-300); CALCIUM 8.4 mg/dL (8.5-10.1); CHLORIDE - SERUM 105 mmol/L (98-107); CREATININE - SERUM 0.8 mg/dL (0.6-1.3); GLUCOSE 94 mg/dL (74-106); PROTEIN - SERUM 6.5 g/dL (6.4-8.2); SODIUM 140 mmol/L (136-145); UREA NITROGEN 11 mg/dL (7-18); eGFR NON AFRICAN AMERICAN > 90 mL/min (90-120)
--- NOTE | 2018-12-19 07:00 | NUR ---
RECEIVED REPORT. ASSUMED CARE OF PATIENT. CALL LIGHT WITHIN REACH. RESTING WITH EYES CLOSED. EASILY AROUSED. RESP EVEN AND UNLABORED. NO DISTRESS. DENIES NEEDS.
[2018-12-19 07:05] LABS: POTASSIUM - SERUM 3.8 mmol/L (3.5-5.1)
[2018-12-19 08:11] VITALS: BP 117/74
--- NOTE | 2018-12-19 08:20 | NUR ---
SODA PROVIDED UPON REQUEST. NO DISTRESS. 100% AM MEAL CONSUMED AT THIS TIME.
[2018-12-19 11:34] VITALS: BP 114/77
--- NOTE | 2018-12-19 13:39 | NUR ---
RESTING PEACEFULLY WITH EYES CLOSED. RESP EVEN AND UNLABORED. NO DISTRESS. IV FLUIDS INFUSING ORDERED. CALL LIGHT WITHIN REACH.
[2018-12-19 14:36] LABS: % SATURATION 23 % (15-55); IRON 66 ug/dl (35-150); TOTAL IRON BIND CAPACITY 282 ug/dl (260-445); UNSAT IRON BIND CAPACITY 216 ug/dl (150-375)
[2018-12-19 15:52] VITALS: BP 131/69
--- NOTE | 2018-12-19 18:39 | NUR ---
TELEMETRY APPLIED, SODA PROVIDED UPON REQUEST. NO DISTRESS.
--- NOTE | 2018-12-19 19:20 | NUR ---
ALERT IN BED WITH NO NEEDS BED IS LOW AND LOCKED SRX2 AND IV PATENT LCTA SKIN WARM AND DRY BANDAGE TO LEFT ARM NOTED CLEAN AND DRY AND ABRASIONS TO HEAD NO OTHER WOUNDS NOTED
[2018-12-19 20:00] VITALS: BP 130/74
[2018-12-20 00:01] VITALS: BP 129/68
[2018-12-20 04:00] VITALS: BP 100/62
[2018-12-20 05:33] LABS: BASOPHILS 0.4 % (0-2); HEMATOCRIT 34.5 % (42.0-54.0); HEMOGLOBIN 11.8 g/dL (13.5-17.5); IMMATURE GRANULOCYTES 0.1 % (0-5); LYMPHOCYTES 25.9 % (15-50); MCH 33.7 pg (26.0-34.0); MCHC 34.2 g/dL (31.0-37.0); MCV 98.6 fL (80.0-100.0); MEAN PLATELET VOLUME 9.5 fL (7.4-10.4); MONOCYTES 12.9 % (2-11); NEUTROPHILS 58.7 % (40-80); PLATELET COUNT 288 10x3/uL (130-400); WBC 7.6 10x3/uL (4.8-10.8)
--- NOTE | 2018-12-20 05:51 | NUR ---
I have reviewed this patient and I concur with the Shift Assessment completed by the Licensed Practical Nurse today this shift.
[2018-12-20 06:07] LABS: CALC OSMOLALITY 279 mosm/kg (275-300); CALCIUM 8.8 mg/dL (8.5-10.1); CARBON DIOXIDE 28.5 mmol/L (21.0-32.0); CHLORIDE - SERUM 104 mmol/L (98-107); CREATININE - SERUM 0.9 mg/dL (0.6-1.3); GLUCOSE 93 mg/dL (74-106); MAGNESIUM - SERUM 1.7 mg/dL (1.8-2.4); SODIUM 140 mmol/L (136-145); eGFR NON AFRICAN AMERICAN > 90 mL/min (90-120)
[2018-12-20 06:09] LABS: UREA NITROGEN 14 mg/dL (7-18)
--- NOTE | 2018-12-20 07:00 | NUR ---
PT LYING IN BED. EYES CLOSED. CHEST RISING AND FALLING. ON ROOM AIR. LEFT ARM DRESSING C/D/I. RIGHT SIDE FOREHEAD ABRASIONS. SINUS RHYTHM ON THE MONITOR. PT HAS NO FURTHER NEEDS AT TIME. BED LOW. CL IN REACH.
[2018-12-20 07:38] VITALS: BP 118/67
[2018-12-20] MEDS ORDERED: CLEOCIN HCL300 MG PO (11:13)
[2018-12-20 11:39] VITALS: BP 106/72
--- NOTE | 2018-12-20 11:42 | NUR ---
PT UP TAKING A SHOWER.
--- NOTE | 2018-12-20 12:01 | NUR ---
TELMETRY DC'D. PT TO BE DISCHARGED.
--- NOTE | 2018-12-20 13:45 | NUR ---
LEFT FA DRESSING REMOVED. WILMER WOUND CARE NURSE LOOKED AT ARM AND STATES THERE IS NO S/S OF INFECTION AND DID WOUND CARE TEACHING WITH PT. PT VERBALIZED UNDERSTANDING. RIGHT 18G IV DC'D WITH CATH INTACT. DISCHARGE TEACHING DONE WITH PT AND HE VERBALIZED UNDERSTANDING. DISCHARGE PAPERS SIGNED. PT STATES HE DOES NOT HAVE A RIDE BUT HE WILL WALK. PT REFUSED WC TO BE WHEELED DOWN STAIRS.
--- NOTE | 2018-12-20 14:03 | NUR ---
ROTARY DERRICK OPERATOR WALKED PT DOWNSTAIRS TO FRONT DOOR.
--- NOTE | 2018-12-20 17:50 | MORECARE ---
CASE MANAGEMENT DISCHARGE SUMMARY PATIENT: ARIANNE HAWK UNIT: [id number] ADM DATE: 12/19/18 AGE: 38 : 84 SEX: M ROOM/BED: D.2135 AUTHOR: MIR SOTO PHYSICIAN: REFERRING PHYSICIAN: PATRICIA FRAZIER MD DATE OF SERVICE: 12/20/18 Discharge Plan Patient Name: ARIANNE HAWK [facility] [facility] 1980 Planned Disposition: Home Anticipated Discharge Date: 12/20/18 Discharge Date: 12/20/2018 Expected LOS: 1 Initial Reviewer: [email or web address] Initial Review Date: 12/20/2018 Generated: 12/20/18 6:49 pm DCPIA - Discharge Planning Initial Assessment Updated by [email or web address]: Edward Botello on 12/20/18 5:49 pm * Is the patient Alert and Oriented? Yes * How many steps to enter\exit or inside your home? NONE * PCP NONE * Pharmacy [facility] * Preadmission Environment Home with Family * ADLs Independent * Equipment None * Other Equipment NO MEDICAL EQUIPMENT PROVIDER PREFERENCE * List name and contact numbers for known caregivers / representatives who currently or will assist patient after discharge: ISABELL DUKE, AUNT, * Verbal permission to speak to the caregivers and representatives has been obtained from the patient. N/A * Community resources currently utilized None * Please name any agencies selected above. NONE * Additional services required to return to the preadmission environment? No * Can the patient safely return to the preadmission environment? Yes * Has this patient been hospitalized within the prior 30 days at any hospital? Yes Patient Name: ARIANNE HAWK Page [id number] at 1750 All edits/amendments must be made on the electronic document DICTATION DATE: 12/20/181748 MINE WIRER: THO 12/20/181748 RPT#: [id number] DC DATE:12/20/18 STATUS: DIS IN [facility] [address] [place] [address] END OF REPORT
--- NOTE | 2018-12-20 17:59 | MORECARE ---
CASE MANAGEMENT DISCHARGE SUMMARY PATIENT: ARIANNE HAWK UNIT: [id number] ADM DATE: 12/19/18 AGE: 38 : 84 SEX: M ROOM/BED: D.5131 AUTHOR: BRITTANY,DOC PHYSICIAN: REFERRING PHYSICIAN: PATRICIA FRAZIER MD DATE OF SERVICE: 12/20/18 Discharge Plan Patient Name: ARIANNE HAWK Facility: [facility]:[place] : 1980 Planned Disposition: Home Anticipated Discharge Date: 12/20/18 Discharge Date: 12/20/2018 Expected LOS: 1 Initial Reviewer: [email or web address] Initial Review Date: 12/20/2018 Generated: 12/20/18 6:59 pm Comments DCP- Discharge Planning Updated by [email or web address]: Edward Botello on 12/20/18 4:[address] Patient Name: ARIANNE HAWK Admission Status: ER Accout number: [id number] Admission Date: 12-19-2018 : 1980 Admission Diagnosis: Attending: PATRICIA FRAZIER Current LOS: 1 Anticipated DC Date: 12-20-2018 Planned Disposition: Home Primary Insurance: MEDICAID [place] Discharge Planning Comments: CM MET WITH PT IN ROOM TO DISCUSS DISCHARGE PLANNING AND NEEDS. PT REPORTS LIVING ON THE [place]REETS OF [place] INDEPENDENTLY AND ALONE. PT STATES HE WILL BE STAYING WITH FAMILY WHEN THEY RETURN FROM [place] IN THREE WEEKS. CM DISCUSSED [facility], PT STATES HE CANNOT STAY THERE HE HAS NO IDENTIFICATION. CM DISCUSSED HOW TO GET A CERTIFICATE.PT STATES HE WAS SENT TO [facility] AFTER HIS LAST VISIT AND THEY DON'T HELP THERE. CM REVIEWED CHART, INFORMED PT HE WAS DIRECTED TO THE HEALTH DEPARTMENT. PT STATES HE DID NOT GO THERE AND KNOWS WHERE IT IS AT. PT HAS NO MEDICAL EQUIPMENT AND NO OUTSIDE SERVICES ASSISTING. PT OFFERED PLACEMENT IN [facility], PT DECLINED AND DOES NOT WANT TO LEAVE [place]. PT IS FAMILIAR WITH ASSISTANCE ORGANIZATIONS. PT STATES HE WILL "FLY A SIGN" AFTER HE LEAVES HERE TO GET SOME MONEY TO GET A CERTIFICAT. CM DISCUSSED AVAILABILITY OF HOME HEALTH, REHAB SERVICES AND MEDICAL EQUIPMENT. PT DENIES DISCHARGE NEEDS, REPORTS HE IS WALKING FROM THE HOSPITAL TO GO "FLY A SIGN". PT CAN AFFORD MEDICATION, REPORTS IT IS FREE FROM MEDICAID. CM PROVIDED PT WITH [facility], HEALTH DEPARTMENT LOCATION INFORMATION AND APPLICATION FOR CERTIFICATE. Radiology Orderly: Edward Botello DCPIA - Discharge Planning Initial Assessment Updated by [email or web address]: Edward Botello on 12/20/18 5:49 pm * Is the patient Alert and Oriented? Yes * How many steps to enter\\exit or inside your home? NONE * PCP NONE * Pharmacy [facility] * Preadmission Environment Home with Family * ADLs Independent * Equipment None * Other Equipment NO MEDICAL EQUIPMENT PROVIDER PREFERENCE * List name and contact numbers for known caregivers / representatives who currently or will assist patient after discharge: ISABELL DUKE, AUNT, * Verbal permission to speak to the caregivers and representatives has been obtained from the patient. N/A * Community resources currently utilized None * Please name any agencies selected above. NONE * Additional services required to return to the preadmission environment? No * Can the patient safely return to the preadmission environment? Yes * Has this patient been hospitalized within the prior 30 days at any hospital? Yes Last DP export: 12/20/18 4:50 pm Patient Name: ARIANNE HAWK Page [phone] at 1759 All edits/amendments must be made on the electronic document DICTATION DATE: 12/20/181758 CITY BAILIFF: THO 12/20/181758 RPT#: [id number] DC DATE:12/20/18 STATUS: DIS IN [place] [address] [place] [address] END OF REPORT
== END 2018-12-20 14:04 | disposition home health service (06) | DRG 603 ==
LOC: D.ER 19:04 → OBSVTIME 21:34 → D.M2 21:34
PROVIDERS: Family Medicine; ADMIT Internal Medicine Nephrology; ATTEND Internal Medicine Nephrology
DX: L03.114 Cellulitis of left upper limb (principal); F10.239 Alcohol dependence with withdrawal, unspecified; G40.509 Epileptic seizures related to external causes, not intractable, without status epilepticus; F17.213 Nicotine dependence, cigarettes, with withdrawal; D64.9 Anemia, unspecified; S01.81XA Laceration without foreign body of other part of head, initial encounter; X58.XXXA Exposure to other specified factors, initial encounter; E83.42 Hypomagnesemia

== ENCOUNTER 2019-02-13 17:41 | Emergency (ER) | payer SELFPAY ==
[~2019-02-13] VITALS: Ht 172.7 cm; Wt 68.2 kg
[~2019-02-13 17:41] MED LIST changes: +CLEOCIN HCL300 MG PO
[2019-02-13 17:42] VITALS: Ht 172.7 cm; Wt 68.2 kg
[2019-02-13 18:22] LABS: BASOPHILS 0.3 % (0-2); EOSINOPHILS 1.5 % (0-7); HEMATOCRIT 43.3 % (42.0-54.0); HEMOGLOBIN 14.6 g/dL (13.5-17.5); IMMATURE GRANULOCYTES 0.2 % (0-5); LYMPHOCYTES 21.9 % (15-50); MCH 34.9 pg (26.0-34.0); MCHC 33.7 g/dL (31.0-37.0); MCV 103.6 fL (80.0-100.0); MEAN PLATELET VOLUME 9.1 fL (7.4-10.4); MONOCYTES 8.8 % (2-11); NEUTROPHILS 67.3 % (40-80); PLATELET COUNT 297 10x3/uL (130-400); RBC 4.18 10x6/uL (4.20-6.10); RDW 13.2 % (11.5-14.5); WBC 6.1 10x3/uL (4.8-10.8)
[2019-02-13 18:48] LABS: CALC OSMOLALITY 275 mosm/kg (275-300); CALCIUM 8.9 mg/dL (8.5-10.1); CARBON DIOXIDE 20.2 mmol/L (21.0-32.0); CHLORIDE - SERUM 101 mmol/L (98-107); CREATININE - SERUM 1.1 mg/dL (0.6-1.3); GLUCOSE 87 mg/dL (74-106); POTASSIUM - SERUM 3.9 mmol/L (3.5-5.1); SODIUM 139 mmol/L (136-145); UREA NITROGEN 10 mg/dL (7-18); eGFR NON AFRICAN AMERICAN 80 mL/min (90-120)
[2019-02-13 18:53] LABS: ALBUMIN 3.8 g/dL (3.4-5.0); ALKALINE PHOSPHATASE 101 U/L (46-116); ALT (SGPT) 41 U/L (10-68); BILIRUBIN - TOTAL 0.25 mg/dL (0.2-1.3); MAGNESIUM - SERUM 1.9 mg/dL (1.8-2.4); PROTEIN - SERUM 7.7 g/dL (6.4-8.2)
[2019-02-13 19:43] LABS: APPEARANCE CLEAR (CLEAR); BILIRUBIN NEGATIVE (NEGATIVE); COLOR STRAW (YELLOW); GLUCOSE NEGATIVE (NEGATIVE); KETONE NEGATIVE (NEGATIVE); NITRITE NEGATIVE (NEGATIVE); PROTEIN TRACE mg/dL (NEGATIVE); SPECIFIC GRAVITY 1.015 (1.005-1.020); UROBILINOGEN NORMAL (NORMAL)
[2019-02-13 19:45] LABS: BACTERIA FEW /hpf (NEGATIVE); RED CELLS - URINE 0-5 /hpf (0-5); WHITE CELLS - URINE 0-5 /hpf (NEGATIVE)
[2019-02-13 19:54] LABS: UDS - AMPHET POSITIVE QUAL (NEGATIVE); UDS - BARB NEGATIVE QUAL (NEGATIVE); UDS - BENZO NEGATIVE QUAL (NEGATIVE); UDS - COCAINE NEGATIVE QUAL (NEGATIVE); UDS - OPIATE NEGATIVE QUAL (NEGATIVE); UDS - PCP NEGATIVE QUAL (NEGATIVE); UDS - THC NEGATIVE QUAL (NEGATIVE)
[2019-02-13 20:38] VITALS: BP 114/81
== END 2019-02-13 20:39 | disposition home or self-care (01) ==
LOC: D.ER 17:41
PROVIDERS: Emergency Medicine
DX: G40.909 Epilepsy, unspecified, not intractable, without status epilepticus (principal); F15.90 Other stimulant use, unspecified, uncomplicated; Z72.89 Other problems related to lifestyle; Z91.14 Patient's other noncompliance with medication regimen

== ENCOUNTER 2019-02-22 00:47 | Emergency (ER) | payer MEDICAID ==
[~2019-02-22] VITALS: Ht 172.7 cm; Wt 71.7 kg
[2019-02-22 00:49] VITALS: Ht 172.7 cm; Wt 71.7 kg
[2019-02-22 01:48] LABS: BASOPHILS 0.4 % (0-2); EOSINOPHILS 2.3 % (0-7); HEMATOCRIT 41.3 % (42.0-54.0); HEMOGLOBIN 14.5 g/dL (13.5-17.5); IMMATURE GRANULOCYTES 0.3 % (0-5); LYMPHOCYTES 29.3 % (15-50); MCH 35.2 pg (26.0-34.0); MCHC 35.1 g/dL (31.0-37.0); MCV 100.2 fL (80.0-100.0); MEAN PLATELET VOLUME 8.7 fL (7.4-10.4); MONOCYTES 10.8 % (2-11); NEUTROPHILS 56.9 % (40-80); PLATELET COUNT 255 10x3/uL (130-400); RBC 4.12 10x6/uL (4.20-6.10); RDW 12.7 % (11.5-14.5); WBC 9.5 10x3/uL (4.8-10.8)
[2019-02-22 01:55] LABS: CALC OSMOLALITY 271 mosm/kg (275-300); CALCIUM 8.7 mg/dL (8.5-10.1); CARBON DIOXIDE 21.2 mmol/L (21.0-32.0); CHLORIDE - SERUM 101 mmol/L (98-107); CREATININE - SERUM 0.8 mg/dL (0.6-1.3); POTASSIUM - SERUM 3.6 mmol/L (3.5-5.1); SODIUM 137 mmol/L (136-145); UREA NITROGEN 12 mg/dL (7-18); eGFR NON AFRICAN AMERICAN > 90 mL/min (90-120)
[2019-02-22 01:57] LABS: GLUCOSE 59 mg/dL (74-106)
[2019-02-22 02:01] LABS: ALBUMIN 3.5 g/dL (3.4-5.0); ALKALINE PHOSPHATASE 100 U/L (46-116); ALT (SGPT) 31 U/L (10-68); BILIRUBIN - TOTAL 0.41 mg/dL (0.2-1.3); PROTEIN - SERUM 7.4 g/dL (6.4-8.2)
[2019-02-22 02:16] VITALS: BP 119/60
== END 2019-02-22 02:16 | disposition home or self-care (01) ==
LOC: D.ER 00:47
PROVIDERS: Emergency Medicine
DX: Z59.0 Homelessness (principal); X31.XXXA Exposure to excessive natural cold, initial encounter; T73.0XXA Starvation, initial encounter; R56.9 Unspecified convulsions

== ENCOUNTER 2019-06-08 21:59 | Emergency (ER) | payer MEDICAID ==
[~2019-06-08] VITALS: Ht 172.7 cm; Wt 72.7 kg
[2019-06-08 22:04] VITALS: Ht 172.7 cm; Wt 72.7 kg
[2019-06-08] MEDS ORDERED: TORADOL10 MG PO (22:53)
[2019-06-08] MEDS ORDERED: Crutches (22:53)
--- NOTE | 2019-06-08 22:57 | NUR ---
PATIENT IS HERE FOR HIP PAIN AND DENIES BEING SUICIDIAL AT THIS TIME, GOOD AFFECT. 1-800 NUMBER GIVEN TO PATIENT FOR FUTURE REFERENCE
[2019-06-08 23:12] VITALS: BP 125/84
== END 2019-06-08 23:12 | disposition home or self-care (01) ==
LOC: D.ER 21:59
DX: S72.102A Unspecified trochanteric fracture of left femur, initial encounter for closed fracture (principal); W19.XXXA Unspecified fall, initial encounter; Y93.9 Activity, unspecified; Y92.9 Unspecified place or not applicable

== ENCOUNTER 2019-08-14 19:48 | Emergency (ER) | payer MEDICAID ==
[~2019-08-14] VITALS: Ht 172.7 cm; Wt 72.7 kg
[~2019-08-14 19:48] MED LIST changes: +Crutches; +TORADOL10 MG PO
[2019-08-14 19:54] VITALS: Ht 172.7 cm; Wt 72.7 kg
[2019-08-14 20:10] LABS: BASOPHILS 0.2 % (0-2); EOSINOPHILS 0 % (0-7); HEMATOCRIT 43.6 % (42.0-54.0); HEMOGLOBIN 14.6 g/dL (13.5-17.5); IMMATURE GRANULOCYTES 0.2 % (0-5); LYMPHOCYTES 11.3 % (15-50); MCH 33.4 pg (26.0-34.0); MCHC 33.5 g/dL (31.0-37.0); MCV 99.8 fL (80.0-100.0); MEAN PLATELET VOLUME 8.5 fL (7.4-10.4); MONOCYTES 0.7 % (2-11); NEUTROPHILS 87.6 % (40-80); PLATELET COUNT 177 10x3/uL (130-400); RBC 4.37 10x6/uL (4.20-6.10); RDW 12.9 % (11.5-14.5); WBC 4.6 10x3/uL (4.8-10.8)
[2019-08-14 20:21] LABS: CALC OSMOLALITY 277 mosm/kg (275-300); CALCIUM 8.1 mg/dL (8.5-10.1); CARBON DIOXIDE 24.3 mmol/L (21.0-32.0); CHLORIDE - SERUM 103 mmol/L (98-107); GLUCOSE 94 mg/dL (74-106); POTASSIUM - SERUM 3.5 mmol/L (3.5-5.1); SODIUM 140 mmol/L (136-145); UREA NITROGEN 10 mg/dL (7-18); eGFR NON AFRICAN AMERICAN 89 mL/min (90-120)
[2019-08-14 20:34] LABS: ALBUMIN 3.4 g/dL (3.4-5.0); ALKALINE PHOSPHATASE 123 U/L (30-120); ALT (SGPT) 35 U/L (10-68); BILIRUBIN - TOTAL 0.36 mg/dL (0.2-1.3); CREATINE KINASE 82 UL (21-232); MAGNESIUM - SERUM 1.4 mg/dL (1.8-2.4); PRO BNP 13 pg/mL (0-125); PROTEIN - SERUM 7.3 g/dL (6.4-8.2); THYROID STIMULATING HORMONE 0.71 uIU/mL (0.36-3.74)
[2019-08-14 20:35] LABS: TROPONIN-I < 0.017 ng/mL (0.000-0.060)
[2019-08-15 00:34] VITALS: BP 111/58
== END 2019-08-15 00:34 | disposition home or self-care (01) ==
LOC: D.ER 19:48
PROVIDERS: Family Medicine
DX: F15.10 Other stimulant abuse, uncomplicated (principal); Z86.69 Personal history of other diseases of the nervous system and sense organs